=== PATIENT | male | born 1960 | race Caucasian/White ===

== ENCOUNTER 2018-11-28 23:42 | Observation (INO) ==
[2018-11-28] MEDS ORDERED: DUONEB 0.5 MG/3 MG NEB ONE (23:44)
[2018-11-28] MEDS ORDERED: NARCAN INJ IM ONE (23:50)
[2018-11-28] MEDS ORDERED: DUONEB 0.5 MG/3 MG ONE (23:51)
--- NOTE | 2018-11-28 23:51 | DR.DING ---
HPI - Time Seen Time seen: 23:49 - HPI Comment HPI Comment: He comes in via ems in altered state after being called because of same; significant other reports sob as well; there is question of drug use but no verifiable hx obtained from pt due ams. - Reviewed Nurses Notes Review: Yes - Source History Provided: EMS PMH - PMH Past Medical History: COPD, Hypertension Past Surgical History: Yes Surgical History: Ortho Surgery - Family History Family Medical History: Diabetes Mellitus, Hypertension - Social History Do you use any recreational Drugs:: Yes (thc) - infectious screening Isolation: Standard ROS - Review of Systems Unable to Obtain Due To: Altered mental status PE - General Limitations: Altered Mental Status General Appearance: Appears Intoxicated - Head Head Exam: Normal Inspection, Atraumatic - Chest Chest Inspection: Normal Inspection, Symmetric Chest Wall Rise - Respiratory Respiratory Exam: Bilateral Wheezing - Cardiovascular Cardiovascular Exam: Regular Rate, Normal Rhythm - Abdominal Exam Abdominal Exam: Normal Inspection, Normal Bowel Sounds, Soft - Extremities Extremities Exam: Normal Inspection, Full ROM - Back Back Exam: Normal Inspection - Neurologic Neurological Exam: Other (somnolent, awakens with strong verbal stimulation but responses aren't logical) - Skin Skin Exam: Warm, Dry, Other (facial hyperemia) - Vital signs Vitals: Temperature 98.2 F Pulse Rate [Apical] 72 Pulse Rate 73 Respiratory Rate 28 Blood Pressure [Right Arm] 112/66 Blood Pressure 108/66 O2 Sat by Pulse Oximetry 96 Course - Reevaluation 1st: Unchanged ROR - Labs Reviewed Laboratory Results Reviewed?: Yes Result Diagrams: 11/29/18 00:05 11/29/18 00:05 - Other Results Comments: mpression: Bibasilar atelectasis versus infiltrate. Grossly stable right upper lobe mass. - XRAY XRAY Interpreted by: Radiologist - Labs Reviewed Laboratory: WBC 12.0 X10^3/uL (3.6-10.0) H 11/29/18 00:05 RBC 4.98 X10^6/uL (4.7-6.0) 11/29/18 00:05 Hgb 15.5 g/dL (13.5-18.0) 11/29/18 00:05 Hct 45.4 % (42.0-54.0) 11/29/18 00:05 MCV 91.2 fL (80.0-100.0) 11/29/18 00:05 MCH 31.1 pg (27.0-34.0) 11/29/18 00:05 MCHC 34.1 g/dL (33.0-35.0) 11/29/18 00:05 RDW 14.6 % (11.6-16.5) 11/29/18 00:05 Plt Count 152 X10^3/uL (150.0-450.0) 11/29/18 00:05 MPV 8.6 fL (7.4-11.0) 11/29/18 00:05 Neut % (Auto) 79.4 % (42.0-75.0) H 11/29/18 00:05 Lymph % (Auto) 9.8 % (21.0-51.0) L 11/29/18 00:05 [place] % (Auto) 10.1 % (0.0-13.0) 11/29/18 00:05 Eos % (Auto) 0.3 % (0.9-2.9) L 11/29/18 00:05 Baso % (Auto) 0.4 % (0.2-1.0) 11/29/18 00:05 Neut # (Auto) 9.5 x10^3/uL (2.2-4.8) H 11/29/18 00:05 Lymph # (Auto) 1.2 X10^3/uL (1.3-2.9) L 11/29/18 00:05 [place] # (Auto) 1.2 x10^3/uL (0.3-0.8) H 11/29/18 00:05 Eos # (Auto) 0.0 x10^3/uL (0.0-0.2) 11/29/18 00:05 Baso # (Auto) 0.0 X10^3/uL (0.0-0.1) 11/29/18 00:05 Absolute Nucleated RBC 0.0 /100WBC 11/29/18 00:05 D-Dimer 105 ng/mL (0-400) 11/29/18 00:05 Sample Site Lbra 11/29/18 00:05 ABG pH 7.380 (7.35-7.45) 11/29/18 00:05 ABG pCO2 50.0 mmHg (35.0-45.0) H 11/29/18 00:05 ABG pO2 76.0 mmHg (80.0-100.0) L 11/29/18 00:05 ABG HCO3 29.6 mmol/L (22-26) H 11/29/18 00:05 ABG O2 Saturation 95.0 % (90-100) 11/29/18 00:05 ABG Base Excess 3.5 mmol/L (-2.0-2.0) H 11/29/18 00:05 Aiden Test Na 11/29/18 00:05 A-a Gradient 61.0 mmHg 11/29/18 00:05 FiO2 28.0 11/29/18 00:05 Blood Gas Comments Betsey abg well-mtf 11/29/18 00:05 Sodium 133 mmol/L (136-145) L 11/29/18 00:05 Corrected Sodium 133 mmol/L (136-145) L 11/29/18 00:05 Potassium 3.8 mmol/L (3.5-5.1) 11/29/18 00:05 Chloride 99 mmol/L (98-107) 11/29/18 00:05 Carbon Dioxide 26.5 mmol/L (21-32) 11/29/18 00:05 BUN 18 mg/dL (7-18) 11/29/18 00:05 Creatinine 1.29 mg/dL (0.70-1.30) 11/29/18 00:05 Est GFR (MDRD) Af Amer > 60 (>60) 11/29/18 00:05 Est GFR (MDRD) Non-Af > 60 (>60) 11/29/18 00:05 Glucose 120 mg/dL (65-99) H 11/29/18 00:05 Calcium 8.4 mg/dL (8.5-10.1) L 11/29/18 00:05 Corrected Calcium TNP 11/29/18 00:05 Total Bilirubin 0.50 mg/dL (0.2-1.0) 11/29/18 00:05 AST 21 Units/L (15-37) 11/29/18 00:05 ALT 15 Units/L (12-78) 11/29/18 00:05 Alkaline Phosphatase 34 Units/L (46-116) L 11/29/18 00:05 Creatine Kinase 236 Units/L (39-308) 11/29/18 00:05 CK-MB (CK-2) 6.1 ng/mL (0-4.0) H* 11/29/18 00:05 CK/CKMB % Calc 2.6 % (<4) 11/29/18 00:05 Troponin I 0.00 ng/mL (0-1.5) 11/29/18 00:05 Total Protein 6.7 g/dL (6.4-8.2) 11/29/18 00:05 Albumin 3.4 g/dL (3.4-5.0) 11/29/18 00:05 Globulin 3.3 g/dL (2.5-4.5) 11/29/18 00:05 Albumin/Globulin Ratio 1.0 Ratio (1.1-2.1) L 11/29/18 00:05 Specimen Type Catherized urine 11/29/18 00:56 Urine Color Yellow (YELLOW) 11/29/18 00:56 Urine Appearance Slightly hazy (CLEAR) 11/29/18 00:56 Urine pH 6.0 (5.0 - 8.0) 11/29/18 00:56 Ur Specific [place] 1.025 (1.000-1.030) 11/29/18 00:56 Urine Protein 2+ (NEGATIVE) 11/29/18 00:56 Urine Glucose (UA) Negative (NEGATIVE) 11/29/18 00:56 Urine Ketones 1+ (NEGATIVE) 11/29/18 00:56 Urine Occult Blood 1+ (NEGATIVE) 11/29/18 00:56 Urine Nitrite Negative (NEGATIVE) 11/29/18 00:56 Urine Bilirubin Negative (NEGATIVE) 11/29/18 00:56 Urine Urobilinogen 1+ (NORMAL) 11/29/18 00:56 Ur Leukocyte Esterase 1+ (NEGATIVE) 11/29/18 00:56 Urine RBC 3-5 /HPF (0-3) A 11/29/18 00:56 Urine WBC 3-5 /HPF (0-5) 11/29/18 00:56 Ur Squamous Epith Cells Few /HPF (NEGATIVE) 11/29/18 00:56 Amorphous Sediment 1+ /HPF (NEGATIVE) 11/29/18 00:56 Urine Bacteria Trace /HPF (NEGATIVE) 11/29/18 00:56 Urine Sperm Few /HPF (NEGATIVE) 11/29/18 00:56 Ur Culture Indicated? No/not indicated 11/29/18 00:56 Urine Opiates Screen Negative (NEG=<300) 11/29/18 00:56 Urine Methadone Screen Negative (NEG=<300) 11/29/18 00:56 Ur Barbiturates Screen Negative (NEG=<200) 11/29/18 00:56 Ur Phencyclidine Scrn Negative (NEG=<25) 11/29/18 00:56 Ur Amphetamines Screen Negative (NEG=<1000) 11/29/18 00:56 U Benzodiazepines Scrn Positive (NEG=<200) 11/29/18 00:56 Urine Cocaine Screen Positive (NEG=<300) 11/29/18 00:56 U Marijuana (THC) Screen Positive (NEG=<50) A 11/29/18 00:56 Opioid - Opioid Risk Tool Total: 0 Total Score Risk Category: Low Risk - Diagnosis Discharge Problem: Altered behavior, Hypoxia Cocaine intoxication Qualifiers: Complication of substance-induced condition: with delirium Qualified Code(s): F14.921 - Cocaine use, unspecified with intoxication delirium - Discharge Plan Disposition: 09 ADMITTED INPATIENT Condition: Stable
[2018-11-28] MEDS ORDERED: NARCAN INJ ONE (23:54)
[2018-11-29 00:09] LABS: ABG BASE EXCESS 3.5 mmol/L (-2.0-2.0); ABG HCO3 29.6 mmol/L (22-26)
[2018-11-29 00:22] LABS: BASOPHILS % (AUTO) 0.4 % (0.2-1.0); EOSINOPHILS % (AUTO) 0.3 % (0.9-2.9); HEMATOCRIT 45.4 % (42.0-54.0); HEMOGLOBIN 15.5 g/dL (13.5-18.0); LYMPHOCYTES # (AUTO) 1.2 X10^3/uL (1.3-2.9); LYMPHOCYTES % (AUTO) 9.8 % (21.0-51.0); MEAN CORPUSCULAR HEMOGLOBIN 31.1 pg (27.0-34.0); MEAN CORPUSCULAR HGB CONC 34.1 g/dL (33.0-35.0); MEAN CORPUSCULAR VOLUME 91.2 fL (80.0-100.0); MEAN PLATELET VOLUME 8.6 fL (7.4-11.0); MONOCYTES # (AUTO) 1.2 x10^3/uL (0.3-0.8); MONOCYTES % (AUTO) 10.1 % (0.0-13.0); NEUTROPHILS # (AUTO) 9.5 x10^3/uL (2.2-4.8); NEUTROPHILS % (AUTO) 79.4 % (42.0-75.0); PLATELET COUNT 152 X10^3/uL (150.0-450.0); RED BLOOD COUNT 4.98 X10^6/uL (4.7-6.0); RED CELL DISTRIBUTION WIDTH 14.6 % (11.6-16.5)
[2018-11-29] MEDS ORDERED: NS 1000 ML 1,000 ML ONE (00:41)
[2018-11-29 00:58] LABS: BLOOD UREA NITROGEN 18 mg/dL (7-18); CALCIUM 8.4 mg/dL (8.5-10.1); CARBON DIOXIDE 26.5 mmol/L (21-32); CHLORIDE 99 mmol/L (98-107); COR NA(FOR HYPERGLY) 133 mmol/L (136-145); CREATININE 1.29 mg/dL (0.70-1.30); SODIUM 133 mmol/L (136-145); eGFR NON BLACK RACES > 60 (>60)
[2018-11-29] MEDS ORDERED: NS 1000 ML 1,000 ML IV SCH ×2 (01:00→03:00)
[2018-11-29 01:05] LABS: ALANINE AMINOTRANSFERASE 15 Units/L (12-78); ALBUMIN 3.4 g/dL (3.4-5.0); ALKALINE PHOSPHATASE 34 Units/L (46-116); ASPARTATE AMINO TRANSFERASE 21 Units/L (15-37); CREATINE KINASE 236 Units/L (39-308); TOTAL PROTEIN 6.7 g/dL (6.4-8.2)
[2018-11-29 01:06] LABS: CKMB % 2.6 % (<4); CREATINE KINASE MB 6.1 ng/mL (0-4.0)
[2018-11-29 01:12] LABS: BILIRUBIN,URINE NEGATIVE (NEGATIVE); BLOOD/HEMOGLOBIN,URINE 1+ (NEGATIVE); GLUCOSE, URINE NEGATIVE (NEGATIVE); KETONES,URINE 1+ (NEGATIVE); LEUKOCYTE ESTERASE ,URINE 1+ (NEGATIVE); NITRITES,URINE NEGATIVE (NEGATIVE); PROTEIN,URINE 2+ (NEGATIVE); UROBILINOGEN,URINE 1+ (NORMAL)
[2018-11-29 01:21] LABS: AMORPHOUS SEDIMENT,UR 1+ /HPF (NEGATIVE); APPEARANCE,URINE SLIGHTLY HAZY (CLEAR); BACTERIA,URINE TRACE /HPF (NEGATIVE); COLOR,URINE YELLOW (YELLOW); SPERM,URINE FEW /HPF (NEGATIVE); SQUAMOUS EPITHELIAL CELL,UR FEW /HPF (NEGATIVE)
--- NOTE | 2018-11-29 01:43 | RAD ---
Chest, 1 view Indication: Shortness of breath, possible overdose Comparison: 10/01/2018 Findings: Right upper lobe mass is not significantly changed in size. Adjacent metallic clips are new from prior. Minimal bibasilar reticular opacities. The cardiac silhouette is unremarkable. No significant pleural effusion or pneumothorax. Impression: Bibasilar atelectasis versus infiltrate. Grossly stable right upper lobe mass. Reported By:
[2018-11-29] MEDS ORDERED: ATIVAN INJ 2 MG VIAL IVP PRN (02:23)
[2018-11-29] MEDS ORDERED: TYLENOL 500 MG TAB EXTRA STRENGTH PO PRN (02:23)
[2018-11-29] MEDS ORDERED: ZOFRAN INJ 4 MG VIAL IVP PRN (02:23)
[2018-11-29] MEDS ORDERED: PROVENTIL NEB TX 0.083% 2.5MG/ 3ML NEB PRN (02:34)
[2018-11-29 08:52] LABS: CKMB % 3.2 % (<4); CREATINE KINASE 173 Units/L (39-308); TROPONIN I < 0.02 ng/mL (0-1.5)
[2018-11-29 08:53] LABS: CREATINE KINASE MB 5.5 ng/mL (0-4.0)
[2018-11-29 08:55] VITALS: BP 96/72
--- NOTE | 2018-11-29 18:28 | DR.H&P ---
H&P - History & Physical for Day of: H&P Date: 11/29/18 - Chief Complaint Chief Complaint: AMS - History of Present Illness History of Present Illness: 58 WM ER ADMISSION WITH AMS, PER EMS. REPORTS FROM PT'S SIGNIFICANT OTHER PT HAD INGESTED COCAINE, XANAX AND SOMA. PT WAS NOTED TO BY ALTERED ON ARRIVAL TO ER. PT HAS PMH OF OA, NEWLY DIAGNOSED WITH LUNG CANCER, AND HX OF SUBSTANCE ABUSE. PT ADMITTED TO ICU FOR EVALUATION AND TREATMENT OF A CUTE ILLNESS. - Past Medical History Past Medical History: COPD, Hypertension Additional Medical History: LUNG MASS - Past Surgical History Surgical History: Ortho Surgery - Family History Family Medical History: Diabetes Mellitus, Hypertension - Social History Does patient currently use any type of tobacco product: Yes Have you used tobacco products in the last 12 months: Yes Type of Tobacco Use: Cigarettes Does any household member use tobacco: Yes Drug Use: Cocaine, Marijuana - Medications Home Medications: No Known Drug Allergies Allergy (Verified 11/29/18 01:03) - Review of Systems Constitutional: Weakness Eyes: No Symptoms Reported ENT: No Symptoms Reported Respiratory: Cough, Shortness of Breath, SOB with Excertion, Sputum, Wheezing Gastrointestinal: No Symptoms Reported Genitourinary: No Symptoms Reported Musculoskeletal: Back Pain Skin: No Symptoms Reported Neurological: Weakness - Physical Exam Vital Signs: Temperature 98.9 F Pulse Rate [Apical] 64 Pulse Rate 68 Respiratory Rate 22 Blood Pressure [Right Arm] 101/61 Blood Pressure 96/72 O2 Sat by Pulse Oximetry 95 Oriented: Person Eyes: Normal Ear: Normal Nose: Normal Throat: Normal Respiratory: Wheezes Throughout, RLL Diminished, LLL Diminished : Normal Auscultation: Bowel Sounds: Normal Palpation: Normal Tenderness: Normal Skin: Decreased Turgur Musculoskeletal: Back:Lumbar Psychiatric: Anxiety Affect: Anxious Speech Pattern: Appropriate - Assessment/Plan (1) Altered behavior Status: Acute Plan: ADMIT ICU, CONTINOUS CARDIAC MONITORING. SERIAL EKGS, CE. IV HYDRATION, BP CONTROL. SUPPLEMENTAL O2, RESP THERAPY. VERIFY HOME MEDICATION, CANO WITH STRICT I& OS. CXR ON ADMISSION (2) Cocaine intoxication Qualifiers: Complication of substance-induced condition: with delirium Qualified Code(s): F14.921 - Cocaine use, unspecified with intoxication delirium Status: Acute (3) Lung mass Status: Acute - Allergies Allergies/Adverse Reactions: Allergies Allergy/AdvReac Type Severity Reaction Status Date / Time No Known Drug Allergies Allergy Verified 11/29/18 01:03
== END 2018-11-29 08:35 | disposition left against medical advice (07) ==
LOC: ICU 23:43 → ER 23:43 → ICU 11-29 02:56
PROVIDERS: ADMIT Internal Medicine; ATTEND Internal Medicine
DX: R40.4 Transient alteration of awareness; F19.90 Other psychoactive substance use, unspecified, uncomplicated; J44.9 Chronic obstructive pulmonary disease, unspecified; F12.90 Cannabis use, unspecified, uncomplicated; F14.921 Cocaine use, unspecified with intoxication delirium; C34.90 Malignant neoplasm of unspecified part of unspecified bronchus or lung; R06.02 Shortness of breath; I10 Essential (primary) hypertension
CPT/HCPCS: 36415; 36600; 51702; 71010; 71045; 80053; 80307; 81001; 82550; 82553; 82803; 84484; 85025; 85378; 93005; 94640; 96365; 96367; 96372; 99284; G0378; G0434; J2310; J7030; J7620

== ENCOUNTER 2023-01-22 13:29 | Inpatient (IN) ==
[2023-01-22] MEDS ORDERED: NARCAN INJ IVP ONE (13:36)
[2023-01-22] MEDS ORDERED: NS 1,000 ML IV 1,000 ML IV ONE ×4 (13:52→16:48)
[2023-01-22] MEDS ORDERED: NS 1,000 ML IV 1,000 ML ONE ×5 (13:54→18:02)
[2023-01-22] MEDS ORDERED: NARCAN INJ ONE (13:57)
[2023-01-22] MEDS ORDERED: ZOFRAN INJ 4 MG VIAL ONE (13:58)
--- NOTE | 2023-01-22 14:07 | DR.SOBA ---
HPI Time Seen Time Seen by Provider: 01/22/23 14:05 Primary Care Physician Primary Care Physician: DANIEL CEJA Complaints Chief Complaint Doctors Comments: This patient fell at home and he has a CANDACE drain in his right chest he thinks he may have dislodged one of the arm that drain. He also was hypotensive at the scene and he does have a history of incre ased opiate use. Chief Complaint:: EMS states that patient fell & pulled CANDACE drain loose from a fall he had previously x1 week ago. Source History Provided: EMS Mode of Arrival Mode of Arrival: EMS Timing Onset of Chief Complaint: 01/22/23 PMH PMH Past Medical History: Yes Past Medical History: Anxiety, Arthritis, COPD, Depression, Dyslipidemia, Hypertension and Hypothyroidism Past Surgical History: Yes Surgical History: Ortho Surgery Family History History of Family Medical Conditions: Yes Family Medical History: Diabetes Mellitus and Coronary Artery Disease Social History Does patient currently use any type of tobacco product: Yes Have you used tobacco products in the last 12 months: Yes Type of Tobacco Use: Cigarettes Alcohol Use: None Do you use any recreational Drugs:: No Lives With: Alone Lives Where: Home Infectious screening In the last 2 months have you had wt loss of >10#?: NO Have you had fever, night sweats or hemotysis?: No Have you traveled outside the country in the last 6 months?: No Isolation: Standard ROS Review of Systems Constitutional: Weakness and Other (hypotensive) Eyes: No Symptoms Reported ENTM: No Symptoms Reported Respiratoy: No Symptoms Reported Cardiovascular: No Symptoms Reported Gastrointestinal/Abdominal: No Symptoms Reported Genitourinary: No Symptoms Reported Neurological: No Symptoms Reported Musculoskeletal: Right and Other (flank pain) Integumentary: Other (candace drain in r axillary chest) Hematologic/Lymphatic: No Symptoms Reported Endocrine: No Symptoms Reported Psychiatric: Other (obtunded) PE Vital Signs Vitals: Vital Signs Temperature 97.2 F Temperature 94.4 F Temperature 93.9 F Temperature 97.7 F Pulse Rate 92 Pulse Rate 91 Pulse Rate 86 Pulse Rate 91 Pulse Rate 86 Pulse Rate 85 Pulse Rate 86 Pulse Rate 82 Pulse Rate 84 Pulse Rate 80 Pulse Rate 80 Pulse Rate 80 Pulse Rate 81 Pulse Rate 75 Pulse Rate 78 Pulse Rate 77 Pulse Rate 80 Pulse Rate 82 Pulse Rate 84 Pulse Rate 86 Pulse Rate 96 Pulse Rate 98 Pulse Rate 99 Pulse Rate 100 Pulse Rate 97 Pulse Rate 97 Pulse Rate 99 Pulse Rate 97 Pulse Rate 97 Pulse Rate 98 Pulse Rate 98 Pulse Rate 100 Pulse Rate 99 Pulse Rate 96 Pulse Rate 92 Pulse Rate 83 Pulse Rate 84 Pulse Rate 76 Pulse Rate 70 Pulse Rate 64 Pulse Rate 58 Pulse Rate 57 Pulse Rate 56 Pulse Rate 54 Pulse Rate 53 Pulse Rate 52 Pulse Rate 57 Pulse Rate 52 Pulse Rate 50 Pulse Rate 51 Respiratory Rate 22 Respiratory Rate 17 Respiratory Rate 17 Respiratory Rate 29 Respiratory Rate 28 Respiratory Rate 23 Respiratory Rate 21 Respiratory Rate 19 Respiratory Rate 26 Respiratory Rate 18 Respiratory Rate 22 Respiratory Rate 24 Respiratory Rate 28 Respiratory Rate 21 Respiratory Rate 18 Respiratory Rate 29 Respiratory Rate 23 Respiratory Rate 20 Respiratory Rate 19 Respiratory Rate 16 Respiratory Rate 19 Respiratory Rate 17 Respiratory Rate 94 Respiratory Rate 25 Respiratory Rate 28 Respiratory Rate 27 Respiratory Rate 13 Respiratory Rate 17 Respiratory Rate 16 Respiratory Rate 16 Respiratory Rate 18 Respiratory Rate 15 Respiratory Rate 24 Respiratory Rate 16 Respiratory Rate 13 Respiratory Rate 0 Respiratory Rate 17 Respiratory Rate 25 Respiratory Rate 19 Respiratory Rate 22 Respiratory Rate 12 Respiratory Rate 20 Respiratory Rate 22 Respiratory Rate 21 Respiratory Rate 16 Blood Pressure 139/93 Blood Pressure 143/68 Blood Pressure 140/69 Blood Pressure 138/70 Blood Pressure 130/65 Blood Pressure 138/67 Blood Pressure 132/69 Blood Pressure 144/77 Blood Pressure 123/55 Blood Pressure 123/60 Blood Pressure 157/70 Blood Pressure 108/55 Blood Pressure 102/58 Blood Pressure 93/55 Blood Pressure 78/42 Blood Pressure 68/41 Blood Pressure 68/41 Blood Pressure 100/63 Blood Pressure 100/63 Blood Pressure 84/48 Blood Pressure 89/48 Blood Pressure 93/52 Blood Pressure 92/46 Blood Pressure 88/54 Blood Pressure 85/53 Blood Pressure 67/43 Blood Pressure 92/53 Blood Pressure 99/51 Blood Pressure 76/43 Blood Pressure 102/67 Blood Pressure 102/67 Blood Pressure 78/45 Blood Pressure 86/59 Blood Pressure 91/62 Blood Pressure 76/52 Blood Pressure 75/43 O2 Sat by Pulse Oximetry 95 O2 Sat by Pulse Oximetry 94 O2 Sat by Pulse Oximetry 93 O2 Sat by Pulse Oximetry 97 O2 Sat by Pulse Oximetry 97 O2 Sat by Pulse Oximetry 97 O2 Sat by Pulse Oximetry 97 O2 Sat by Pulse Oximetry 97 O2 Sat by Pulse Oximetry 97 O2 Sat by Pulse Oximetry 96 O2 Sat by Pulse Oximetry 98 O2 Sat by Pulse Oximetry 98 O2 Sat by Pulse Oximetry 98 O2 Sat by Pulse Oximetry 98 O2 Sat by Pulse Oximetry 98 O2 Sat by Pulse Oximetry 97 O2 Sat by Pulse Oximetry 98 O2 Sat by Pulse Oximetry 97 O2 Sat by Pulse Oximetry 97 O2 Sat by Pulse Oximetry 98 O2 Sat by Pulse Oximetry 97 O2 Sat by Pulse Oximetry 96 O2 Sat by Pulse Oximetry 98 O2 Sat by Pulse Oximetry 98 O2 Sat by Pulse Oximetry 97 O2 Sat by Pulse Oximetry 98 O2 Sat by Pulse Oximetry 98 O2 Sat by Pulse Oximetry 98 O2 Sat by Pulse Oximetry 99 O2 Sat by Pulse Oximetry 97 O2 Sat by Pulse Oximetry 98 O2 Sat by Pulse Oximetry 98 O2 Sat by Pulse Oximetry 97 O2 Sat by Pulse Oximetry 98 O2 Sat by Pulse Oximetry 99 O2 Sat by Pulse Oximetry 98 O2 Sat by Pulse Oximetry 99 O2 Sat by Pulse Oximetry 97 O2 Sat by Pulse Oximetry 98 O2 Sat by Pulse Oximetry 95 O2 Sat by Pulse Oximetry 100 O2 Sat by Pulse Oximetry 100 O2 Sat by Pulse Oximetry 97 O2 Sat by Pulse Oximetry 98 O2 Sat by Pulse Oximetry 96 O2 Sat by Pulse Oximetry 98 O2 Sat by Pulse Oximetry 96 O2 Sat by Pulse Oximetry 85 General Limitations: Physical Limitation (weak and unable to ambulate) General Appearance: Lethargic and Obtunded Head Head Exam: Normal Inspection, Atraumatic and Normocephalic Eyes Eye exam: Normal Appearance ENT ENT Exam: Normal Exam and Normal Oropharynx Neck Neck Exam: Normal Inspection, Full ROM and Trachea Midline Chest Chest Inspection: Other (sutures right axillary area and a candace drain) Respiratory Respiratory Exam: Normal Lung Sounds Bilat Respiratory Exam: Bilateral: Clear to Auscultation Cardiovascular Cardiovascular Exam: Bradycardia Abdominal Exam Abdominal Exam: Normal Inspection and Normal Bowel Sounds Extremities Extremities Exam: Normal Inspection Back Back Exam: Normal Inspection Neurologic Neurological Exam: Other (obtunded) Psychiatric Psychiatric Exam: Flat Affect Skin Skin Exam: Other (Duration on right flank with CANDACE drain in place.) MDM Differential Diagnosis Differential Diagnosis: Mycardial Infarction and Other (hypotension,drug overdose) Differential Diagnosis Comment:: rhabdomyolysis COURSE Treatment Treatment: NoThis patient remained hypotensive for while doing out evaluation treatment. He was given 4 L saline bolus and then continue as saline drip at 200 cc an hour. The patient also was initially given a dopamine drip that did not affect his blood pressure for movement of to around 70 systolic. We finally had to put him on a Levophed drip and his blood pressure did increase to about 150/90 and we start weaning down the Levophed. The patient also gout Narcan 2 mg IV and Romazicon 0.2 mg IV because he had benzodiazepine and opiates on his UDS. Patient did appear to become more alert about 25 minutes after administration of those 2 drugs. Patient had a CK of 1985 so we will begin treatment for rhabdomyolysis. Patient's lactic acid level was only 0.[address] scan of his brain because he was obtunded there was no intracranial abnormality. This patient BUN was 63 and creatinine was 2.84 and his GFR was 29 so he did have some renal insufficiency also. We did contact Dr. Steiner at 1925 and she excepted this patient to admission for further treatment and therapy. ROR Labs Reviewed Laboratory Results Reviewed?: Yes 01/22/23 15:00 01/22/23 15:00 Laboratory: WBC 5.6 X10^3/uL (3.6-10.0) 01/22/23 15:00 RBC 3.30 X10^6/uL (4.7-6.0) L 01/22/23 15:00 Hgb 9.7 g/dL (13.5-18.0) L 01/22/23 15:00 Hct 29.0 % (42.0-54.0) L 01/22/23 15:00 MCV 87.8 fL (80.0-100.0) 01/22/23 15:00 MCH 29.5 pg (27.0-34.0) 01/22/23 15:00 MCHC 33.6 g/dL (33.0-35.0) 01/22/23 15:00 RDW 14.5 % (11.6-16.5) 01/22/23 15:00 Plt Count 191 X10^3/uL (150.0-450.0) 01/22/23 15:00 MPV 7.2 fL (7.4-11.0) L 01/22/23 15:00 Neut % (Auto) 73.4 % (42.0-75.0) 01/22/23 15:00 Lymph % (Auto) 14.8 % (21.0-51.0) L 01/22/23 15:00 [place] % (Auto) 9.8 % (0.0-13.0) 01/22/23 15:00 Eos % (Auto) 1.7 % (0.9-2.9) 01/22/23 15:00 Baso % (Auto) 0.3 % (0.2-1.0) 01/22/23 15:00 Neut # (Auto) 4.1 x10^3/uL (2.2-4.8) 01/22/23 15:00 Lymph # (Auto) 0.8 X10^3/uL (1.3-2.9) L 01/22/23 15:00 [place] # (Auto) 0.6 x10^3/uL (0.3-0.8) 01/22/23 15:00 Eos # (Auto) 0.1 x10^3/uL (0.0-0.2) 01/22/23 15:00 Baso # (Auto) 0.0 X10^3/uL (0.0-0.1) 01/22/23 15:00 Absolute Nucleated RBC 0.1 /100WBC 01/22/23 15:00 Sodium 134 mmol/L (136-145) L 01/22/23 15:00 Corrected Sodium TNP 01/22/23 15:00 Potassium 4.0 mmol/L (3.5-5.1) 01/22/23 15:00 Chloride 99 mmol/L (98-107) 01/22/23 15:00 Carbon Dioxide 28.0 mmol/L (21-32) 01/22/23 15:00 BUN 63 mg/dL (7-18) H 01/22/23 15:00 Creatinine 2.84 mg/dL (0.70-1.30) H 01/22/23 15:00 Est GFR (MDRD) Af Amer 29 (>60) L 01/22/23 15:00 Est GFR (MDRD) Non-Af 24 (>60) L 01/22/23 15:00 Glucose 106 mg/dL (65-99) H 01/22/23 15:00 Lactic Acid 0.9 mmol/L (0.4-2.0) 01/22/23 15:53 Calcium 7.9 mg/dL (8.5-10.1) L 01/22/23 15:00 Corrected Calcium 9.1 mg/dL (8.5-10.1) 01/22/23 15:00 Total Bilirubin 0.40 mg/dL (0.2-1.0) 01/22/23 15:00 AST 86 Units/L (15-37) H 01/22/23 15:00 ALT 53 Units/L (12-78) 01/22/23 15:00 Alkaline Phosphatase 72 Units/L (46-116) 01/22/23 15:00 Creatine Kinase 1986 Units/L (39-308) H 01/22/23 15:00 Troponin I High Sens 16.1 ng/L (4.0-60.0) 01/22/23 15:00 Total Protein 6.0 g/dL (6.4-8.2) L 01/22/23 15:00 Albumin 2.5 g/dL (3.4-5.0) L 01/22/23 15:00 Globulin 3.5 g/dL (2.5-4.5) 01/22/23 15:00 Albumin/Globulin Ratio 0.7 Ratio (1.1-2.1) L 01/22/23 15:00 Specimen Type Clean catch urine 01/22/23 14:40 Urine Color Yellow (YELLOW) 01/22/23 14:40 Urine Appearance Clear (CLEAR) 01/22/23 14:40 Urine pH 6.0 (5.0 - 8.0) 01/22/23 14:40 Ur Specific [place] 1.025 (1.000-1.030) 01/22/23 14:40 Urine Protein 2+ (NEGATIVE) 01/22/23 14:40 Urine Glucose (UA) Negative (NEGATIVE) 01/22/23 14:40 Urine Ketones Negative (NEGATIVE) 01/22/23 14:40 Urine Blood 1+ (NEGATIVE) 01/22/23 14:40 Urine Nitrite Negative (NEGATIVE) 01/22/23 14:40 Urine Bilirubin Negative (NEGATIVE) 01/22/23 14:40 Urine Urobilinogen Normal (NORMAL) 01/22/23 14:40 Ur Leukocyte Esterase Negative (NEGATIVE) 01/22/23 14:40 Urine RBC 0-2 /HPF (0-3) 01/22/23 14:40 Urine WBC 5-10 /HPF (0-5) A 01/22/23 14:40 Ur Squamous Epith Cells Rare /HPF (NEGATIVE) 01/22/23 14:40 Amorphous Sediment Trace /HPF (NEGATIVE) 01/22/23 14:40 Urine Bacteria Trace /HPF (NEGATIVE) 01/22/23 14:40 Hyaline Casts Few /LPF (NEGATIVE) 01/22/23 14:40 Urine Mucus Rare /HPF (NEGATIVE) 01/22/23 14:40 Ur Culture Indicated? No/not indicated 01/22/23 14:40 Urine Opiates Screen Positive (NEG=<300) 01/22/23 14:40 Urine Methadone Screen Negative (NEG=<300) 01/22/23 14:40 Ur Barbiturates Screen Negative (NEG=<200) 01/22/23 14:40 Ur Phencyclidine Scrn Negative (NEG=<25) 01/22/23 14:40 Ur Amphetamines Screen Negative (NEG=<1000) 01/22/23 14:40 U Benzodiazepines Scrn Positive (NEG=<200) 01/22/23 14:40 Urine Cocaine Screen Negative (NEG=<300) 01/22/23 14:40 U Marijuana (THC) Screen Negative (NEG=<50) 01/22/23 14:40 Opioid Opioid Risk Tool Age ([place]ario box if 16-45): No History of Preadolescent Sexual Abuse: No Total: 0 Total Score Risk Category: Low Risk Copyright: Pradip MARCUM predicting aberrant behaviors Discharge Plan Diagnosis Discharge Problem: Acute renal failure due to rhabdomyolysis, Accidental drug overdose, Hypotension Discharge Plan Patient Disposition: 09 ADMITTED INPATIENT Condition: Stable Prescriptions: No Action fluoxetine 40 mg capsule 40 mg PO QDAY clindamycin HCl 300 mg capsule 300 mg PO TID Rx Instructions: x 10 days started on 01/20/23 alprazolam 1 mg tablet 1 mg PO TID PRN tizanidine 4 mg tablet 8 mg PO BID terazosin 1 mg capsule 1 mg PO QDAY ciprofloxacin HCl 500 mg tablet 500 mg PO BID Rx Instructions: x 10 days - started on 01/16/23 levothyroxine 100 mcg tablet 100 mcg PO QDAY clonidine HCl 0.2 mg tablet 0.2 mg PO BID potassium chloride 20 mEq tablet,ER particles/crystals 20 meq PO BID amlodipine 10 mg tablet 10 mg PO QDAY hydrocodone-acetaminophen 7.5-325 mg tablet 1 tab PO Q6H PRN simvastatin 20 mg tablet 20 mg PO QPM montelukast 10 mg tablet 10 mg PO QDAY hydrochlorothiazide 25 mg tablet 25 mg PO QDAY hydrochlorothiazide 25 mg tablet 25 mg PO QDAY furosemide 20 mg tablet 20 mg PO QDAY furosemide 20 mg tablet 20 mg PO QDAY losartan 100 mg tablet 100 mg PO QDAY amoxicillin-pot clavulanate 875-125 mg tablet 1 tab PO BID Rx Instructions: x 7 days - started on 01/20/23 fenofibrate 160 mg tablet 160 mg PO QDAY quetiapine 400 mg tablet 400 mg PO QPM budesonide-formoterol [Symbicort] 160-4.5 mcg/actuation HFA aerosol inhaler 1 inh inhalation BID Health Concerns: Post Hospitalization: new medications and changes needed to prevent readmission or further decline. Pt educated and given instructions on all concerns. Plan of Treatment: Continue with present treatment and follow up plan. Pt is to keep follow up appointment as instructed and take medications as ordered. Orders to Discharge Patient Discharge Orders: Transfer (Routine); Ordered 01/22/23 Ordered By: Sulaiman Sanders Follow ups/Referrals Follow ups/Referrals: DONAVON CEJA [Primary Care Provider] - 3 days Instructions Stand Alone Forms: Post Hospital Follow Up Care
[2023-01-22] MEDS ORDERED: ZOFRAN INJ 4 MG VIAL IVP ONE (14:08)
--- NOTE | 2023-01-22 14:08 | EKG ---
Test Reason : hypotension Blood Pressure : */* mmHG Vent. Rate : 52 BPM Atrial Rate : 52 BPM P-R Int : 184 ms QRS Dur : 98 ms QT Int : 474 ms P-R-T Axes : 83 73 73 degrees QTc Int : 440 ms Sinus bradycardia Otherwise normal ECG When compared with ECG of 08-APR-2022 00:59, No significant change was found Confirmed by Ezekiel Bauer ([id number]) on 01/23/2023 1:31:52 PM Referred By: Confirmed By: Ezekiel Bauer
[2023-01-22] MEDS ORDERED: DOPAMINE IV PREMIX 400 MG/250 ML 400 MG/250 ML BAG IV ONE ×2 (14:45→14:49)
[2023-01-22 14:52] LABS: ALBUMIN 2.5 g/dL (3.4-5.0)
[2023-01-22 15:11] LABS: BASOPHILS % (AUTO) 0.3 % (0.2-1.0); EOSINOPHILS # (AUTO) 0.1 x10^3/uL (0.0-0.2); EOSINOPHILS % (AUTO) 1.7 % (0.9-2.9); HEMOGLOBIN 9.7 g/dL (13.5-18.0); LYMPHOCYTES # (AUTO) 0.8 X10^3/uL (1.3-2.9); LYMPHOCYTES % (AUTO) 14.8 % (21.0-51.0); MEAN CORPUSCULAR HEMOGLOBIN 29.5 pg (27.0-34.0); MEAN CORPUSCULAR HGB CONC 33.6 g/dL (33.0-35.0); MEAN CORPUSCULAR VOLUME 87.8 fL (80.0-100.0); MEAN PLATELET VOLUME 7.2 fL (7.4-11.0); MONOCYTES # (AUTO) 0.6 x10^3/uL (0.3-0.8); MONOCYTES % (AUTO) 9.8 % (0.0-13.0); NEUTROPHILS # (AUTO) 4.1 x10^3/uL (2.2-4.8); NEUTROPHILS % (AUTO) 73.4 % (42.0-75.0); PLATELET COUNT 191 X10^3/uL (150.0-450.0); RED CELL DISTRIBUTION WIDTH 14.5 % (11.6-16.5); WHITE BLOOD COUNT 5.6 X10^3/uL (3.6-10.0)
[2023-01-22 15:12] LABS: BILIRUBIN,URINE NEGATIVE (NEGATIVE); BLOOD/HEMOGLOBIN,URINE 1+ (NEGATIVE); GLUCOSE, URINE NEGATIVE (NEGATIVE); KETONES,URINE NEGATIVE (NEGATIVE); LEUKOCYTE ESTERASE ,URINE NEGATIVE (NEGATIVE); NITRITES,URINE NEGATIVE (NEGATIVE); PROTEIN,URINE 2+ (NEGATIVE); UROBILINOGEN,URINE NORMAL (NORMAL)
[2023-01-22 15:20] LABS: APPEARANCE,URINE CLEAR (CLEAR); BACTERIA,URINE TRACE /HPF (NEGATIVE); COLOR,URINE YELLOW (YELLOW); RBC,URINE 0-2 /HPF (0-3); SQUAMOUS EPITHELIAL CELL,UR RARE /HPF (NEGATIVE)
[2023-01-22 15:21] LABS: HYALINE CASTS, URINE FEW /LPF (NEGATIVE)
[2023-01-22 15:34] LABS: ALANINE AMINOTRANSFERASE 53 Units/L (12-78); ALKALINE PHOSPHATASE 72 Units/L (46-116); ASPARTATE AMINO TRANSFERASE 86 Units/L (15-37); BLOOD UREA NITROGEN 63 mg/dL (7-18); CALCIUM 7.9 mg/dL (8.5-10.1); CHLORIDE 99 mmol/L (98-107); COR CA(FOR HYPOALB) 9.1 mg/dL (8.5-10.1); CREATININE 2.84 mg/dL (0.70-1.30); GLUCOSE 106 mg/dL (65-99); SODIUM 134 mmol/L (136-145); eGFR NON BLACK RACES 24 (>60)
[2023-01-22] MEDS ORDERED: ROMAZICON INJ 1 MG ONE (16:19)
[2023-01-22] MEDS ORDERED: ROMAZICON INJ 1 MG IVP ONE (16:19)
--- NOTE | 2023-01-22 16:59 | CT ---
EXAM:BRAIN W/O CONHISTORY:AMS; DERRELL ONOFRECOMPARISON:09/30/2020TECHNIQUE:Nonenh anced spiral CT imaging was performed through the head and axial, coronal, and sagittal CT images were generated.FINDINGS:The ventricles and sulci are within normal limits. There is hypodensity in the periventricular white matter. The brain parenchyma otherwise has normal density. There is no sulcal effacement or focal loss of the eddy-white junction to suggest acute infarct. There is no intracranial hemorrhage. There is no mass effect or midline shift. The calvarium is intact. Mastoid air cells and middle ear cavities are clear. The paranasal sinuses are clear.IMPRESSION:No acute abnormality.THIS IS AN ELECTRONICALLY VERIFIED FINAL [id number]/22/2023 4:55 PM - Electronically signed by Aleks Campoverde MD
[2023-01-22] MEDS ORDERED: LEVOPHED INJ (VIAL) 8 MG in D5W 250 ML IV 250 ML IV PRN (17:15)
[2023-01-22] MEDS ORDERED: LEVOPHED INJ (VIAL) ONE (17:18)
[2023-01-22] MEDS ORDERED: D5W 250 ML IV 250 ML IV ONE (17:19)
[2023-01-22] MEDS ORDERED: NS 1,000 ML IV 1,000 ML IV SCH (19:00)
[2023-01-22] MEDS: NS 1,000 ML IV 1,000 ML IV SCH (20:00)
[2023-01-22] MEDS: ZOCOR TAB 20 MG PO SCH (22:00)
[2023-01-23] MEDS: NS 1,000 ML IV 1,000 ML IV SCH ×6 (04:33→20:47)
[2023-01-23 04:55] LABS: BASOPHILS % (AUTO) 0.2 % (0.2-1.0); EOSINOPHILS % (AUTO) 0.7 % (0.9-2.9); HEMATOCRIT 27.2 % (42.0-54.0); HEMOGLOBIN 9.2 g/dL (13.5-18.0); LYMPHOCYTES # (AUTO) 0.6 X10^3/uL (1.3-2.9); LYMPHOCYTES % (AUTO) 8.6 % (21.0-51.0); MEAN CORPUSCULAR HEMOGLOBIN 29.4 pg (27.0-34.0); MEAN CORPUSCULAR HGB CONC 33.9 g/dL (33.0-35.0); MEAN CORPUSCULAR VOLUME 86.7 fL (80.0-100.0); MEAN PLATELET VOLUME 7.3 fL (7.4-11.0); MONOCYTES # (AUTO) 0.6 x10^3/uL (0.3-0.8); MONOCYTES % (AUTO) 8.6 % (0.0-13.0); NEUTROPHILS # (AUTO) 5.4 x10^3/uL (2.2-4.8); NEUTROPHILS % (AUTO) 81.9 % (42.0-75.0); PLATELET COUNT 199 X10^3/uL (150.0-450.0); RED BLOOD COUNT 3.14 X10^6/uL (4.7-6.0); WHITE BLOOD COUNT 6.5 X10^3/uL (3.6-10.0)
[2023-01-23 05:18] LABS: ALANINE AMINOTRANSFERASE 50 Units/L (12-78); ALBUMIN 2.3 g/dL (3.4-5.0); ALKALINE PHOSPHATASE 67 Units/L (46-116); ASPARTATE AMINO TRANSFERASE 81 Units/L (15-37); BLOOD UREA NITROGEN 37 mg/dL (7-18); CALCIUM 7.6 mg/dL (8.5-10.1); CARBON DIOXIDE 25.4 mmol/L (21-32); CHLORIDE 105 mmol/L (98-107); CREATININE 1.49 mg/dL (0.70-1.30); GLUCOSE 109 mg/dL (65-99); POTASSIUM 3.7 mmol/L (3.5-5.1); SODIUM 137 mmol/L (136-145); TOTAL PROTEIN 5.7 g/dL (6.4-8.2); eGFR NON BLACK RACES 51 (>60)
[2023-01-23 05:21] LABS: CREATINE KINASE 1582 Units/L (39-308)
[2023-01-23] MEDS ORDERED: CONSULT PHARMACY - POTASSIUM & MAGNESIUM XX SCH (06:00)
[2023-01-23] MEDS ORDERED: CATAPRES TAB 0.1 MG PO ONE (06:10)
[2023-01-23] MEDS ORDERED: CATAPRES TAB 0.1 MG ONE (06:16)
[2023-01-23] MEDS: MAG-OX TAB PO SCH ×2 (08:53→10:08)
[2023-01-23] MEDS: PROzac PO SCH (08:53)
[2023-01-23] MEDS: SYNTHROID 100 mcg TAB PO SCH (08:54)
[2023-01-23] MEDS ORDERED: K-DUR TAB 20 MEQ PO SCH (09:00)
[2023-01-23] MEDS: PULMICORT NEB TX 0.5 MG NEB SCH ×2 (10:03→20:44)
[2023-01-23] MEDS: PROVENTIL NEB TX 0.083% 2.5MG/ 3ML NEB SCH ×2 (10:03→20:44)
[2023-01-23] MEDS: LOVENOX INJ 30 MG SYR SC SCH (10:06)
[2023-01-23] MEDS: XANAX PO PRN ×2 (14:53→22:06)
[2023-01-23] MEDS: NORCO 7.5/325 MG TAB PO PRN ×2 (14:55→23:03)
[2023-01-23] MEDS ORDERED: CATAPRES TAB 0.2 MG ONE (17:49)
[2023-01-23] MEDS: CATAPRES TAB 0.2 MG PO PRN ×2 (17:54→23:55)
--- NOTE | 2023-01-23 18:34 | DR.H&P ---
H&P History & Physical for Day of: H&P Date: 01/23/23 Chief Complaint Chief Complaint: Altered mental status Fall Allergies Allergies Allergy/AdvReac Type Severity Reaction Status Date / Time No Known Drug Allergies Allergy Unknown Verified 04/08/22 00:21 History of Present Illness History of Present Illness: Patient is a 62-year-old male with a past medical history of hypertension, hypothyroidism, COPD, osteoarthritis, anxiety disorder, presenting to the ER after having a fall. Patient admits to taking more of his medication than was prescribed. He is on opioids and benzodiazepine. In the ER he was noted to be hypotensive and still altered mentally. His UDS was positive for opioids and benzodiazepines. Labs/imaging: WBC 6.5, hemoglobin 9.2, platelets 199, sodium 137, potassium 3.7, creatinine 2.84>1.49, glucose 109, lactic acid 0.9, creatinine kinase 1986>[id number], UA negative, brain CT revealed no acute intracranial abnormalities. Patient was given fluid boluses and blood pressure responded appropriately. Will continue with IV fluids normal saline and reduce rate in the afternoon to 125 mL/h. Restart home medications. On exam patient is alert and oriented. He does have a OVIDIO drain on the right chest wall. Will consult general surgery for evaluation. He is unable to provide an explanation of why he has that drain. Otherwise, will continue to closely monitor and follow up labs. Time spent on clinical assessment, reviewing labs and imaging, decision making, and documentation greater than 45 minutes. Past Medical History Past Medical History: Anxiety, Arthritis, COPD, Depression, Dyslipidemia, Hypertension and Hypothyroidism Additional Medical History: LUNG MASS Past Surgical History Surgical History: Ortho Surgery Family History Family Medical History: Diabetes Mellitus and Coronary Artery Disease Social History Does patient currently use any type of tobacco product: Yes Have you used tobacco products in the last 12 months: Yes Type of Tobacco Use: Cigarettes Does any household member use tobacco: No Alcohol Use: None Drug Use: Marijuana Medications Home Medications: Home Medications Medication Instructions Recorded Confirmed Type alprazolam 1 mg tablet 1 mg PO TID PRN 01/22/23 01/22/23 History amlodipine 10 mg tablet 10 mg PO QDAY 01/22/23 01/22/23 History amoxicillin 875 mg-potassium 1 tab PO BID 01/22/23 01/22/23 History clavulanate 125 mg tablet budesonide-formoterol HFA 160 1 inh inhalation BID 01/22/23 01/22/23 History mcg-4.5 mcg/actuation aerosol inhaler (Symbicort) ciprofloxacin HCl 500 mg tablet 500 mg PO BID 01/22/23 01/22/23 History clindamycin HCl 300 mg capsule 300 mg PO TID 01/22/23 01/22/23 History clonidine HCl 0.2 mg tablet 0.2 mg PO BID 01/22/23 01/22/23 History fenofibrate 160 mg tablet 160 mg PO QDAY 01/22/23 01/22/23 History fluoxetine 40 mg capsule 40 mg PO QDAY 01/22/23 01/22/23 History furosemide 20 mg tablet 20 mg PO QDAY 01/22/23 01/22/23 History furosemide 20 mg tablet 20 mg PO QDAY 01/22/23 01/22/23 History hydrochlorothiazide 25 mg tablet 25 mg PO QDAY 01/22/23 01/22/23 History hydrochlorothiazide 25 mg tablet 25 mg PO QDAY 01/22/23 01/22/23 History hydrocodone 7.5 mg-acetaminophen 1 tab PO Q6H PRN 01/22/23 01/22/23 History 325 mg tablet levothyroxine 100 mcg tablet 100 mcg PO QDAY 01/22/23 01/22/23 History losartan 100 mg tablet 100 mg PO QDAY 01/22/23 01/22/23 History montelukast 10 mg tablet 10 mg PO QDAY 01/22/23 01/22/23 History potassium chloride 20 mEq 20 meq PO BID 01/22/23 01/22/23 History tablet,extended release(part/cryst) quetiapine 400 mg tablet 400 mg PO QPM 01/22/23 01/22/23 History simvastatin 20 mg tablet 20 mg PO QPM 01/22/23 01/22/23 History terazosin 1 mg capsule 1 mg PO QDAY 01/22/23 01/22/23 History tizanidine 4 mg tablet 8 mg PO BID 01/22/23 01/22/23 History Labs 01/23/23 04:00 01/23/23 04:00 Labs: Laboratory WBC 6.5 X10^3/uL (3.6-10.0) 01/23/23 04:00 RBC 3.14 X10^6/uL (4.7-6.0) L 01/23/23 04:00 Hgb 9.2 g/dL (13.5-18.0) L 01/23/23 04:00 Hct 27.2 % (42.0-54.0) L 01/23/23 04:00 MCV 86.7 fL (80.0-100.0) 01/23/23 04:00 MCH 29.4 pg (27.0-34.0) 01/23/23 04:00 MCHC 33.9 g/dL (33.0-35.0) 01/23/23 04:00 RDW 14.0 % (11.6-16.5) 01/23/23 04:00 Plt Count 199 X10^3/uL (150.0-450.0) 01/23/23 04:00 MPV 7.3 fL (7.4-11.0) L 01/23/23 04:00 Neut % (Auto) 81.9 % (42.0-75.0) H 01/23/23 04:00 Lymph % (Auto) 8.6 % (21.0-51.0) L 01/23/23 04:00 [place] % (Auto) 8.6 % (0.0-13.0) 01/23/23 04:00 Eos % (Auto) 0.7 % (0.9-2.9) L 01/23/23 04:00 Baso % (Auto) 0.2 % (0.2-1.0) 01/23/23 04:00 Neut # (Auto) 5.4 x10^3/uL (2.2-4.8) H 01/23/23 04:00 Lymph # (Auto) 0.6 X10^3/uL (1.3-2.9) L 01/23/23 04:00 [place] # (Auto) 0.6 x10^3/uL (0.3-0.8) 01/23/23 04:00 Eos # (Auto) 0.0 x10^3/uL (0.0-0.2) 01/23/23 04:00 Baso # (Auto) 0.0 X10^3/uL (0.0-0.1) 01/23/23 04:00 Absolute Nucleated RBC 0.0 /100WBC 01/23/23 04:00 Sodium 137 mmol/L (136-145) 01/23/23 04:00 Corrected Sodium TNP 01/23/23 04:00 Potassium 3.7 mmol/L (3.5-5.1) 01/23/23 04:00 Chloride 105 mmol/L (98-107) 01/23/23 04:00 Carbon Dioxide 25.4 mmol/L (21-32) 01/23/23 04:00 BUN 37 mg/dL (7-18) H 01/23/23 04:00 Creatinine 1.49 mg/dL (0.70-1.30) H 01/23/23 04:00 Est GFR (MDRD) Af Amer > 60 (>60) 01/23/23 04:00 Est GFR (MDRD) Non-Af 51 (>60) L 01/23/23 04:00 Glucose 109 mg/dL (65-99) H 01/23/23 04:00 Lactic Acid 0.9 mmol/L (0.4-2.0) 01/22/23 15:53 Calcium 7.6 mg/dL (8.5-10.1) L 01/23/23 04:00 Corrected Calcium 9.0 mg/dL (8.5-10.1) 01/23/23 04:00 Magnesium 1.7 mg/dL (2.0-2.9) L 01/23/23 04:00 Total Bilirubin 0.50 mg/dL (0.2-1.0) 01/23/23 04:00 AST 81 Units/L (15-37) H 01/23/23 04:00 ALT 50 Units/L (12-78) 01/23/23 04:00 Alkaline Phosphatase 67 Units/L (46-116) 01/23/23 04:00 Creatine Kinase 1582 Units/L (39-308) H 01/23/23 04:00 Troponin I High Sens 16.1 ng/L (4.0-60.0) 01/22/23 15:00 Total Protein 5.7 g/dL (6.4-8.2) L 01/23/23 04:00 Albumin 2.3 g/dL (3.4-5.0) L 01/23/23 04:00 Globulin 3.4 g/dL (2.5-4.5) 01/23/23 04:00 Albumin/Globulin Ratio 0.7 Ratio (1.1-2.1) L 01/23/23 04:00 Specimen Type Clean catch urine 01/22/23 14:40 Urine Color Yellow (YELLOW) 01/22/23 14:40 Urine Appearance Clear (CLEAR) 01/22/23 14:40 Urine pH 6.0 (5.0 - 8.0) 01/22/23 14:40 Ur Specific [place] 1.025 (1.000-1.030) 01/22/23 14:40 Urine Protein 2+ (NEGATIVE) 01/22/23 14:40 Urine Glucose (UA) Negative (NEGATIVE) 01/22/23 14:40 Urine Ketones Negative (NEGATIVE) 01/22/23 14:40 Urine Blood 1+ (NEGATIVE) 01/22/23 14:40 Urine Nitrite Negative (NEGATIVE) 01/22/23 14:40 Urine Bilirubin Negative (NEGATIVE) 01/22/23 14:40 Urine Urobilinogen Normal (NORMAL) 01/22/23 14:40 Ur Leukocyte Esterase Negative (NEGATIVE) 01/22/23 14:40 Urine RBC 0-2 /HPF (0-3) 01/22/23 14:40 Urine WBC 5-10 /HPF (0-5) A 01/22/23 14:40 Ur Squamous Epith Cells Rare /HPF (NEGATIVE) 01/22/23 14:40 Amorphous Sediment Trace /HPF (NEGATIVE) 01/22/23 14:40 Urine Bacteria Trace /HPF (NEGATIVE) 01/22/23 14:40 Hyaline Casts Few /LPF (NEGATIVE) 01/22/23 14:40 Urine Mucus Rare /HPF (NEGATIVE) 01/22/23 14:40 Ur Culture Indicated? No/not indicated 01/22/23 14:40 Urine Opiates Screen Positive (NEG=<300) 01/22/23 14:40 Urine Methadone Screen Negative (NEG=<300) 01/22/23 14:40 Ur Barbiturates Screen Negative (NEG=<200) 01/22/23 14:40 Ur Phencyclidine Scrn Negative (NEG=<25) 01/22/23 14:40 Ur Amphetamines Screen Negative (NEG=<1000) 01/22/23 14:40 U Benzodiazepines Scrn Positive (NEG=<200) 01/22/23 14:40 Urine Cocaine Screen Negative (NEG=<300) 01/22/23 14:40 U Marijuana (THC) Screen Negative (NEG=<50) 01/22/23 14:40 Review of Systems Constitutional: Weakness Eyes: No Symptoms Reported ENT: No Symptoms Reported Respiratory: No Symptoms Reported Cardiovascular: No Symptoms Reported Gastrointestinal: No Symptoms Reported Genitourinary: No Symptoms Reported Musculoskeletal: No Symptoms Reported Skin: No Symptoms Reported Neurological: No Symptoms Reported Physical Exam Vital Signs: Vital Signs Temperature 98.2 F Pulse Rate [Left Brachial] 104 Pulse Rate [Left Brachial] 97 Pulse Rate 99 Pulse Rate 99 Pulse Rate 100 Pulse Rate 100 Pulse Rate 97 Pulse Rate 100 Pulse Rate 100 Pulse Rate 100 Pulse Rate 104 Pulse Rate 103 Pulse Rate 103 Pulse Rate 104 Pulse Rate 103 Pulse Rate 98 Pulse Rate 97 Pulse Rate 98 Pulse Rate 97 Pulse Rate 97 Pulse Rate 97 Pulse Rate 98 Pulse Rate 95 Pulse Rate 98 Pulse Rate 97 Pulse Rate 97 Pulse Rate 97 Pulse Rate 98 Pulse Rate 99 Pulse Rate 103 Pulse Rate 97 Pulse Rate 99 Pulse Rate 98 Pulse Rate 99 Pulse Rate 93 Pulse Rate 97 Pulse Rate 96 Pulse Rate 97 Pulse Rate 95 Pulse Rate 96 Pulse Rate 97 Pulse Rate 99 Pulse Rate 100 Pulse Rate 100 Pulse Rate 95 Pulse Rate 99 Pulse Rate 102 Pulse Rate 99 Pulse Rate 103 Pulse Rate 100 Pulse Rate 103 Pulse Rate 104 Pulse Rate 104 Pulse Rate 107 Pulse Rate 107 Pulse Rate 108 Pulse Rate 105 Pulse Rate 103 Pulse Rate 99 Pulse Rate 101 Pulse Rate 97 Pulse Rate 103 Respiratory Rate 24 Respiratory Rate 27 Respiratory Rate 22 Respiratory Rate 27 Respiratory Rate 23 Respiratory Rate 23 Respiratory Rate 23 Respiratory Rate 26 Respiratory Rate 24 Respiratory Rate 36 Respiratory Rate 30 Respiratory Rate 27 Respiratory Rate 30 Respiratory Rate 23 Respiratory Rate 24 Respiratory Rate 21 Respiratory Rate 22 Respiratory Rate 22 Respiratory Rate 23 Respiratory Rate 22 Respiratory Rate 21 Respiratory Rate 17 Respiratory Rate 21 Respiratory Rate 23 Respiratory Rate 23 Respiratory Rate 22 Respiratory Rate 23 Respiratory Rate 21 Respiratory Rate 24 Respiratory Rate 23 Respiratory Rate 22 Respiratory Rate 22 Respiratory Rate 22 Respiratory Rate 23 Respiratory Rate 22 Respiratory Rate 26 Respiratory Rate 22 Respiratory Rate 24 Respiratory Rate 28 Respiratory Rate 26 Respiratory Rate 20 Respiratory Rate 22 Respiratory Rate 23 Respiratory Rate 23 Respiratory Rate 24 Respiratory Rate 24 Respiratory Rate 21 Respiratory Rate 25 Respiratory Rate 27 Respiratory Rate 25 Respiratory Rate 19 Respiratory Rate 22 Respiratory Rate 24 Respiratory Rate 29 Respiratory Rate 36 Respiratory Rate 39 Respiratory Rate 19 Respiratory Rate 21 Respiratory Rate 27 Respiratory Rate 26 Respiratory Rate 22 Respiratory Rate 25 Blood Pressure [Right Arm] 126/68 Blood Pressure [Right Arm] 165/67 Blood Pressure 191/88 Blood Pressure 183/84 Blood Pressure 187/89 Blood Pressure 187/89 Blood Pressure 187/90 Blood Pressure 187/90 Blood Pressure 187/81 Blood Pressure 184/85 Blood Pressure 177/79 Blood Pressure 173/82 Blood Pressure 174/81 Blood Pressure 167/77 Blood Pressure 173/80 Blood Pressure 162/74 Blood Pressure 169/78 Blood Pressure 176/76 Blood Pressure 164/71 Blood Pressure 174/78 Blood Pressure 180/75 Blood Pressure 166/73 Blood Pressure 165/72 Blood Pressure 166/72 Blood Pressure 143/69 Blood Pressure 171/77 Blood Pressure 168/74 Blood Pressure 163/73 Blood Pressure 163/72 Blood Pressure 157/72 Blood Pressure 170/70 Blood Pressure 170/70 Blood Pressure 170/70 Blood Pressure 144/64 Blood Pressure 144/64 Blood Pressure 151/68 Blood Pressure 175/81 Blood Pressure 183/81 Blood Pressure 159/70 Blood Pressure 156/71 Blood Pressure 149/85 Blood Pressure 154/83 Blood Pressure 160/67 Blood Pressure 126/68 Blood Pressure 121/58 Blood Pressure 140/62 Blood Pressure 146/85 Blood Pressure 126/69 Blood Pressure 167/76 Blood Pressure 165/67 Blood Pressure 172/81 O2 Sat by Pulse Oximetry 91 O2 Sat by Pulse Oximetry 90 O2 Sat by Pulse Oximetry 91 O2 Sat by Pulse Oximetry 92 O2 Sat by Pulse Oximetry 92 O2 Sat by Pulse Oximetry 92 O2 Sat by Pulse Oximetry 93 O2 Sat by Pulse Oximetry 93 O2 Sat by Pulse Oximetry 93 O2 Sat by Pulse Oximetry 92 O2 Sat by Pulse Oximetry 93 O2 Sat by Pulse Oximetry 94 O2 Sat by Pulse Oximetry 91 O2 Sat by Pulse Oximetry 93 O2 Sat by Pulse Oximetry 92 O2 Sat by Pulse Oximetry 93 O2 Sat by Pulse Oximetry 92 O2 Sat by Pulse Oximetry 93 O2 Sat by Pulse Oximetry 91 O2 Sat by Pulse Oximetry 93 O2 Sat by Pulse Oximetry 94 O2 Sat by Pulse Oximetry 94 O2 Sat by Pulse Oximetry 91 O2 Sat by Pulse Oximetry 93 O2 Sat by Pulse Oximetry 92 O2 Sat by Pulse Oximetry 93 O2 Sat by Pulse Oximetry 93 O2 Sat by Pulse Oximetry 94 O2 Sat by Pulse Oximetry 97 O2 Sat by Pulse Oximetry 97 O2 Sat by Pulse Oximetry 98 O2 Sat by Pulse Oximetry 100 O2 Sat by Pulse Oximetry 100 O2 Sat by Pulse Oximetry 95 O2 Sat by Pulse Oximetry 96 O2 Sat by Pulse Oximetry 98 O2 Sat by Pulse Oximetry 100 O2 Sat by Pulse Oximetry 100 O2 Sat by Pulse Oximetry 100 O2 Sat by Pulse Oximetry 100 O2 Sat by Pulse Oximetry 99 O2 Sat by Pulse Oximetry 99 O2 Sat by Pulse Oximetry 97 O2 Sat by Pulse Oximetry 98 O2 Sat by Pulse Oximetry 98 O2 Sat by Pulse Oximetry 97 O2 Sat by Pulse Oximetry 94 O2 Sat by Pulse Oximetry 98 O2 Sat by Pulse Oximetry 98 O2 Sat by Pulse Oximetry 97 O2 Sat by Pulse Oximetry 97 O2 Sat by Pulse Oximetry 97 O2 Sat by Pulse Oximetry 53 O2 Sat by Pulse Oximetry 99 O2 Sat by Pulse Oximetry 98 O2 Sat by Pulse Oximetry 99 O2 Sat by Pulse Oximetry 98 Oriented: Normal Eyes: Normal Ear: Normal Nose: Normal Throat: Normal Respiratory: Clear Throughout Cardiovascular: Normal : Normal Auscultation: Bowel Sounds: Normal Palpation: Normal Tenderness: Normal Skin: Normal Musculoskeletal: Normal Psychiatric: Normal Mood Description: Calm and Appropriate Affect: Normal Speech Pattern: Clear and Appropriate Assessment/Plan (1) Accidental drug overdose: Narrative Support Text: Patient alert and oriented. Continue closely monitor. Status: Acute (2) Rhabdomyolysis: Narrative Support Text: Creatinine kinase improving. Continue to trend. Continue IV fluids. Status: Acute (3) Acute renal failure: Narrative Support Text: Renal function improving. Continue IV fluids. Status: Acute (4) Acute hypotension: Narrative Support Text: Initially on admission. Has resolved now. Status: Acute (5) Hypertension: Status: None (6) Hyperlipidemia: Status: None (7) Chronic pain syndrome: Status: Acute Review H&P Reviewed: Yes Patient was examined?: Yes
[2023-01-23] MEDS ORDERED: APRESOLINE INJ 20 MG VIAL IVP ONE (19:25)
--- NOTE | 2023-01-23 20:05 | RAD ---
EXAM:CHEST, 1 VIEWHISTORY:OVIDIO DRAIN TO RIGHT CHEST WALL;COMPARISON:NoneFINDINGS:Heart: The cardiomediastinal silhouette is normal in size.Lungs: No acute airspace disease.Pleural space: No conspicuous pneumothorax or effusion.Bones:The bony thorax appears age appropriate.IMPRESSION:1. No acute cardiopulmonary disease.THIS IS AN ELECTRONICALLY VERIFIED FINAL [id number]/2023 7:59 PM - Electronically signed by Akil Daily DO
[2023-01-23] MEDS: ZOCOR TAB 20 MG PO SCH (20:47)
[2023-01-24] MEDS: NS 1,000 ML IV 1,000 ML IV SCH ×2 (04:06→05:50)
[2023-01-24 05:23] LABS: BASOPHILS % (AUTO) 0.2 % (0.2-1.0); EOSINOPHILS # (AUTO) 0.1 x10^3/uL (0.0-0.2); EOSINOPHILS % (AUTO) 1.2 % (0.9-2.9); LYMPHOCYTES # (AUTO) 0.7 X10^3/uL (1.3-2.9); LYMPHOCYTES % (AUTO) 12.3 % (21.0-51.0); MEAN CORPUSCULAR HEMOGLOBIN 29.2 pg (27.0-34.0); MEAN CORPUSCULAR HGB CONC 33.4 g/dL (33.0-35.0); MEAN CORPUSCULAR VOLUME 87.4 fL (80.0-100.0); MEAN PLATELET VOLUME 7.4 fL (7.4-11.0); MONOCYTES # (AUTO) 0.6 x10^3/uL (0.3-0.8); MONOCYTES % (AUTO) 9.9 % (0.0-13.0); NEUTROPHILS # (AUTO) 4.3 x10^3/uL (2.2-4.8); NEUTROPHILS % (AUTO) 76.4 % (42.0-75.0); PLATELET COUNT 211 X10^3/uL (150.0-450.0); RED BLOOD COUNT 3.09 X10^6/uL (4.7-6.0); RED CELL DISTRIBUTION WIDTH 14.6 % (11.6-16.5); WHITE BLOOD COUNT 5.6 X10^3/uL (3.6-10.0)
[2023-01-24 05:32] LABS: ALANINE AMINOTRANSFERASE 42 Units/L (12-78); ALKALINE PHOSPHATASE 60 Units/L (46-116); ASPARTATE AMINO TRANSFERASE 46 Units/L (15-37); BLOOD UREA NITROGEN 15 mg/dL (7-18); CALCIUM 8.2 mg/dL (8.5-10.1); CARBON DIOXIDE 30.9 mmol/L (21-32); CHLORIDE 105 mmol/L (98-107); COR CA(FOR HYPOALB) 9.8 mg/dL (8.5-10.1); CREATININE 0.83 mg/dL (0.70-1.30); GLUCOSE 100 mg/dL (65-99); SODIUM 138 mmol/L (136-145); TOTAL PROTEIN 5.5 g/dL (6.4-8.2); eGFR NON BLACK RACES > 60 (>60)
[2023-01-24] MEDS ORDERED: CONSULT PHARMACY - POTASSIUM & MAGNESIUM XX SCH (07:00)
[2023-01-24 08:32] VITALS: TEMP 97.8
[2023-01-24 08:45] VITALS: BMI 26.7
[2023-01-24] MEDS: PROzac PO SCH (08:47)
[2023-01-24] MEDS: SYNTHROID 100 mcg TAB PO SCH (08:47)
[2023-01-24] MEDS: MAG-OX TAB PO SCH ×2 (08:47→09:56)
[2023-01-24] MEDS: LOVENOX INJ 30 MG SYR SC SCH (08:48)
[2023-01-24] MEDS: PROVENTIL NEB TX 0.083% 2.5MG/ 3ML NEB SCH (09:13)
[2023-01-24] MEDS: PULMICORT NEB TX 0.5 MG NEB SCH (09:13)
[2023-01-24 11:15] VITALS: BP 154/72; PULSE 85; RESP 29; O2SAT 97
--- NOTE | 2023-01-26 14:14 | W.DIS.FURT ---
Summary of Discharge Discharge Summary of Date Date of Exam: 01/24/23 Admission Date Date of Admission: 01/22/23 Admission Diagnosis Patient Problems (Updated 01/25/23 @ 13:42 by Danny Sandra) Accidental drug overdose (Resolved) T50.901A Hypotension (Resolved) I95.9 Hospital Course: Patient is a 62-year-old male with a past medical history of hypertension, hypothyroidism, COPD, osteoarthritis, anxiety disorder, admitted for accidental drug overdose, altered mental status, and rhabdomyolysis. Pt admitted to taking too much of his home medications of opioids and benzodiazepine. Patient was gi jayden IV fluid boluses and IV fluids normal saline at rate of 125 mL/h. He did have a OVIDIO drain on the right chest wall that general surgery was consulted and monitoring. It was placed at [facility] after he had a fall. Surgery will follow up outpatient on OVIDIO drain. Otherwise, pt responded well to treatments. Renal function significantly improved and CK trending down. Pt instructed to take his medication only as prescribed. Pt discharged in stable condition, instructed to follow up with pcp in 1 week. Vital Signs: Vital Signs (72 hours) 01/22/23 13:30 01/22/23 14:06 01/22/23 14:11 Temperature 97.7 F Pulse Rate 51 L 50 L 52 L Pulse Rate [Left Brachial] Respiratory Rate 16 21 22 Blood Pressure 75/43 Blood Pressure [Right Arm] O2 Sat by Pulse Oximetry 85 L 96 98 Oxygen Delivery Method Room Air Oxygen Flow Rate FIO2% 01/22/23 14:11 01/22/23 14:15 01/22/23 14:20 Temperature Pulse Rate 57 L 52 L Pulse Rate [Left Brachial] Respiratory Rate 20 12 Blood Pressure 76/52 Blood Pressure [Right Arm] O2 Sat by Pulse Oximetry 96 98 Oxygen Delivery Method Oxygen Flow Rate FIO2% 01/22/23 14:20 01/22/23 14:30 01/22/23 14:30 Temperature Pulse Rate 53 L Pulse Rate [Left Brachial] Respiratory Rate 22 Blood Pressure 91/62 86/59 Blood Pressure [Right Arm] O2 Sat by Pulse Oximetry 97 Oxygen Delivery Method Oxygen Flow Rate FIO2% 01/22/23 14:41 01/22/23 14:41 01/22/23 14:45 Temperature Pulse Rate 54 L 56 L Pulse Rate [Left Brachial] Respiratory Rate 19 25 H Blood Pressure 78/45 Blood Pressure [Right Arm] O2 Sat by Pulse Oximetry 100 Oxygen Delivery Method Oxygen Flow Rate FIO2% 01/22/23 14:51 01/22/23 14:51 01/22/23 14:51 Temperature Pulse Rate 57 L Pulse Rate [Left Brachial] Respiratory Rate 17 Blood Pressure 102/67 102/67 Blood Pressure [Right Arm] O2 Sat by Pulse Oximetry 100 Oxygen Delivery Method Oxygen Flow Rate FIO2% 01/22/23 15:00 01/22/23 15:06 01/22/23 15:09 Temperature Pulse Rate 58 L 64 Pulse Rate [Left Brachial] Respiratory Rate 0 L 13 Blood Pressure 76/43 Blood Pressure [Right Arm] O2 Sat by Pulse Oximetry 95 Oxygen Delivery Method Oxygen Flow Rate FIO2% 01/22/23 15:10 01/22/23 15:15 01/22/23 15:20 Temperature Pulse Rate 70 76 Pulse Rate [Left Brachial] Respiratory Rate 16 24 Blood Pressure 99/51 Blood Pressure [Right Arm] O2 Sat by Pulse Oximetry 98 97 Oxygen Delivery Method Oxygen Flow Rate FIO2% 01/22/23 15:20 01/22/23 15:30 01/22/23 15:37 Temperature 93.9 F L Pulse Rate 84 Pulse Rate [Left Brachial] Respiratory Rate 15 Blood Pressure 92/53 Blood Pressure [Right Arm] O2 Sat by Pulse Oximetry 99 Oxygen Delivery Method Oxygen Flow Rate FIO2% 01/22/23 15:34 01/22/23 15:34 01/22/23 15:41 Temperature Pulse Rate 83 92 H Pulse Rate [Left Brachial] Respiratory Rate Blood Pressure 67/43 Blood Pressure [Right Arm] O2 Sat by Pulse Oximetry 98 99 Oxygen Delivery Method Oxygen Flow Rate FIO2% 01/22/23 15:41 01/22/23 15:45 01/22/23 16:00 Temperature Pulse Rate 96 H 99 H Pulse Rate [Left Brachial] Respiratory Rate Blood Pressure 85/53 Blood Pressure [Right Arm] O2 Sat by Pulse Oximetry 98 97 Oxygen Delivery Method Oxygen Flow Rate FIO2% 01/22/23 16:15 01/22/23 16:19 01/22/23 16:19 Temperature Pulse Rate 100 H 98 H Pulse Rate [Left Brachial] Respiratory Rate 18 16 Blood Pressure 88/54 Blood Pressure [Right Arm] O2 Sat by Pulse Oximetry 98 98 Oxygen Delivery Method Oxygen Flow Rate FIO2% 01/22/23 16:20 01/22/23 16:20 01/22/23 16:30 Temperature Pulse Rate 98 H 97 H Pulse Rate [Left Brachial] Respiratory Rate 16 17 Blood Pressure 92/46 Blood Pressure [Right Arm] O2 Sat by Pulse Oximetry 97 99 Oxygen Delivery Method Oxygen Flow Rate FIO2% 01/22/23 16:30 01/22/23 16:41 01/22/23 16:41 Temperature 94.4 F L Pulse Rate 97 H Pulse Rate [Left Brachial] Respiratory Rate 13 Blood Pressure 93/52 89/48 Blood Pressure [Right Arm] O2 Sat by Pulse Oximetry 98 Oxygen Delivery Method Oxygen Flow Rate FIO2% 01/22/23 16:45 01/22/23 16:50 01/22/23 16:50 Temperature Pulse Rate 99 H 97 H Pulse Rate [Left Brachial] Respiratory Rate 27 H 28 H Blood Pressure 84/48 Blood Pressure [Right Arm] O2 Sat by Pulse Oximetry 98 98 Oxygen Delivery Method Oxygen Flow Rate FIO2% 01/22/23 17:00 01/22/23 17:09 01/22/23 17:09 Temperature Pulse Rate 97 H Pulse Rate [Left Brachial] Respiratory Rate Blood Pressure 100/63 100/63 Blood Pressure [Right Arm] O2 Sat by Pulse Oximetry 97 Oxygen Delivery Method Oxygen Flow Rate FIO2% 01/22/23 17:09 01/22/23 17:10 01/22/23 17:10 Temperature Pulse Rate 100 H Pulse Rate [Left Brachial] Respiratory Rate 25 H Blood Pressure 68/41 68/41 Blood Pressure [Right Arm] O2 Sat by Pulse Oximetry 98 Oxygen Delivery Method Oxygen Flow Rate FIO2% 01/22/23 17:10 01/22/23 17:15 01/22/23 17:20 Temperature Pulse Rate 99 H 98 H Pulse Rate [Left Brachial] Respiratory Rate 94 H 17 Blood Pressure 78/42 Blood Pressure [Right Arm] O2 Sat by Pulse Oximetry 98 96 Oxygen Delivery Method Oxygen Flow Rate FIO2% 01/22/23 17:20 01/22/23 17:30 01/22/23 17:30 Temperature Pulse Rate 96 H 86 Pulse Rate [Left Brachial] Respiratory Rate 19 16 Blood Pressure 93/55 Blood Pressure [Right Arm] O2 Sat by Pulse Oximetry 97 98 Oxygen Delivery Method Oxygen Flow Rate FIO2% 01/22/23 17:40 01/22/23 17:40 01/22/23 17:45 Temperature Pulse Rate 84 82 Pulse Rate [Left Brachial] Respiratory Rate 19 20 Blood Pressure 102/58 Blood Pressure [Right Arm] O2 Sat by Pulse Oximetry 97 97 Oxygen Delivery Method Oxygen Flow Rate FIO2% 01/22/23 17:50 01/22/23 17:50 01/22/23 18:00 Temperature Pulse Rate 80 77 Pulse Rate [Left Brachial] Respiratory Rate 23 29 H Blood Pressure 108/55 Blood Pressure [Right Arm] O2 Sat by Pulse Oximetry 98 97 Oxygen Delivery Method Oxygen Flow Rate FIO2% 01/22/23 18:04 01/22/23 18:04 01/22/23 18:10 Temperature Pulse Rate 78 Pulse Rate [Left Brachial] Respiratory Rate 18 Blood Pressure 157/70 123/60 Blood Pressure [Right Arm] O2 Sat by Pulse Oximetry 98 Oxygen Delivery Method Oxygen Flow Rate FIO2% 01/22/23 18:10 01/22/23 18:15 01/22/23 18:20 Temperature Pulse Rate 75 81 80 Pulse Rate [Left Brachial] Respiratory Rate 21 28 H 24 Blood Pressure Blood Pressure [Right Arm] O2 Sat by Pulse Oximetry 98 98 98 Oxygen Delivery Method Oxygen Flow Rate FIO2% 01/22/23 18:20 01/22/23 18:30 01/22/23 18:30 Temperature Pulse Rate 80 Pulse Rate [Left Brachial] Respiratory Rate 22 Blood Pressure 123/55 144/77 Blood Pressure [Right Arm] O2 Sat by Pulse Oximetry 98 Oxygen Delivery Method Oxygen Flow Rate FIO2% 01/22/23 18:41 01/22/23 18:41 01/22/23 18:45 Temperature Pulse Rate 80 84 Pulse Rate [Left Brachial] Respiratory Rate 18 26 H Blood Pressure 132/69 Blood Pressure [Right Arm] O2 Sat by Pulse Oximetry 96 97 Oxygen Delivery Method Oxygen Flow Rate FIO2% 01/22/23 18:50 01/22/23 18:50 01/22/23 19:00 Temperature Pulse Rate 82 Pulse Rate [Left Brachial] Respiratory Rate 19 Blood Pressure 138/67 130/65 Blood Pressure [Right Arm] O2 Sat by Pulse Oximetry 97 Oxygen Delivery Method Oxygen Flow Rate FIO2% 01/22/23 19:00 01/22/23 19:10 01/22/23 19:10 Temperature 97.2 F L Pulse Rate 86 85 Pulse Rate [Left Brachial] Respiratory Rate 21 23 Blood Pressure 138/70 Blood Pressure [Right Arm] O2 Sat by Pulse Oximetry 97 97 Oxygen Delivery Method Oxygen Flow Rate FIO2% 01/22/23 19:15 01/22/23 19:20 01/22/23 19:20 Temperature Pulse Rate 86 91 H Pulse Rate [Left Brachial] Respiratory Rate 28 H 29 H Blood Pressure 140/69 Blood Pressure [Right Arm] O2 Sat by Pulse Oximetry 97 97 Oxygen Delivery Method Oxygen Flow Rate FIO2% 01/22/23 19:30 01/22/23 19:30 01/22/23 19:44 Temperature Pulse Rate 86 91 H Pulse Rate [Left Brachial] Respiratory Rate 17 17 Blood Pressure 143/68 Blood Pressure [Right Arm] O2 Sat by Pulse Oximetry 93 L 94 L Oxygen Delivery Method Oxygen Flow Rate FIO2% 01/22/23 19:44 01/22/23 19:45 01/22/23 19:50 Temperature Pulse Rate 92 H 90 Pulse Rate [Left Brachial] Respiratory Rate 22 19 Blood Pressure 139/93 Blood Pressure [Right Arm] O2 Sat by Pulse Oximetry 95 92 L Oxygen Delivery Method Oxygen Flow Rate FIO2% 01/22/23 19:50 01/22/23 19:50 01/22/23 20:00 Temperature Pulse Rate 93 H Pulse Rate [Left Brachial] Respiratory Rate 24 Blood Pressure 148/87 148/87 Blood Pressure [Right Arm] O2 Sat by Pulse Oximetry 97 Oxygen Delivery Method Oxygen Flow Rate FIO2% 01/22/23 20:00 01/22/23 20:10 01/22/23 20:10 Temperature Pulse Rate Pulse Rate [Left Brachial] Respiratory Rate Blood Pressure 137/77 135/69 135/69 Blood Pressure [Right Arm] O2 Sat by Pulse Oximetry Oxygen Delivery Method Oxygen Flow Rate FIO2% 01/22/23 20:10 01/22/23 20:15 01/22/23 20:20 Temperature Pulse Rate 92 H 94 H 93 H Pulse Rate [Left Brachial] Respiratory Rate 21 24 20 Blood Pressure Blood Pressure [Right Arm] O2 Sat by Pulse Oximetry 93 L 94 L 92 L Oxygen Delivery Method Oxygen Flow Rate FIO2% 01/22/23 20:20 01/22/23 20:20 01/22/23 20:20 Temperature Pulse Rate Pulse Rate [Left Brachial] Respiratory Rate Blood Pressure 141/76 141/76 141/76 Blood Pressure [Right Arm] O2 Sat by Pulse Oximetry Oxygen Delivery Method Oxygen Flow Rate FIO2% 01/22/23 20:30 01/22/23 20:30 01/22/23 20:40 Temperature Pulse Rate 96 H 95 H Pulse Rate [Left Brachial] Respiratory Rate 21 27 H Blood Pressure 143/73 Blood Pressure [Right Arm] O2 Sat by Pulse Oximetry 95 95 Oxygen Delivery Method Oxygen Flow Rate FIO2% 01/22/23 20:40 01/22/23 20:50 01/22/23 20:50 Temperature 98.8 F Pulse Rate Pulse Rate [Left Brachial] 100 H Respiratory Rate 19 Blood Pressure 141/66 Blood Pressure [Right Arm] 122/77 O2 Sat by Pulse Oximetry 95 Oxygen Delivery Method Nasal Cannula Nasal Cannula Oxygen Flow Rate 2 FIO2% 01/22/23 22:06 01/22/23 23:00 01/23/23 00:00 Temperature 98.6 F Pulse Rate Pulse Rate [Left Brachial] 95 H 97 H 94 H Respiratory Rate 17 22 19 Blood Pressure Blood Pressure [Right Arm] 136/60 148/73 165/72 O2 Sat by Pulse Oximetry 97 97 97 Oxygen Delivery Method Nasal Cannula Nasal Cannula Nasal Cannula Oxygen Flow Rate FIO2% 01/23/23 01:00 01/23/23 02:00 01/23/23 03:00 Temperature Pulse Rate Pulse Rate [Left Brachial] 95 H 95 H 97 H Respiratory Rate 19 19 25 H Blood Pressure Blood Pressure [Right Arm] 168/77 169/75 163/75 O2 Sat by Pulse Oximetry 98 97 97 Oxygen Delivery Method Nasal Cannula Nasal Cannula Nasal Cannula Oxygen Flow Rate FIO2% 01/23/23 04:00 01/23/23 05:00 01/23/23 06:00 Temperature 98.1 F Pulse Rate Pulse Rate [Left Brachial] 93 H 96 H 97 H Respiratory Rate 27 H 19 23 Blood Pressure Blood Pressure [Right Arm] 158/70 177/80 186/79 O2 Sat by Pulse Oximetry 98 99 99 Oxygen Delivery Method Nasal Cannula Nasal Cannula Nasal Cannula Oxygen Flow Rate FIO2% 01/23/23 06:05 01/23/23 06:18 01/23/23 06:28 Temperature Pulse Rate Pulse Rate [Left Brachial] Respiratory Rate Blood Pressure Blood Pressure [Right Arm] 200/70 178/78 187/81 O2 Sat by Pulse Oximetry Oxygen Delivery Method Oxygen Flow Rate FIO2% 01/23/23 07:00 01/23/23 07:00 01/23/23 08:00 Temperature 98.2 F Pulse Rate Pulse Rate [Left Brachial] 97 H 104 H Respiratory Rate 22 19 Blood Pressure Blood Pressure [Right Arm] 165/67 126/68 O2 Sat by Pulse Oximetry Oxygen Delivery Method Nasal Cannula Nasal Cannula Nasal Cannula Oxygen Flow Rate 2 FIO2% 01/23/23 06:50 01/23/23 06:50 01/23/23 07:00 Temperature Pulse Rate 103 H Pulse Rate [Left Brachial] Respiratory Rate 25 H Blood Pressure 172/81 165/67 Blood Pressure [Right Arm] O2 Sat by Pulse Oximetry 98 Oxygen Delivery Method Oxygen Flow Rate FIO2% 01/23/23 07:00 01/23/23 07:10 01/23/23 07:10 Temperature Pulse Rate 97 H 101 H Pulse Rate [Left Brachial] Respiratory Rate 26 H 27 H Blood Pressure 167/76 Blood Pressure [Right Arm] O2 Sat by Pulse Oximetry 99 98 Oxygen Delivery Method Oxygen Flow Rate FIO2% 01/23/23 07:15 01/23/23 07:21 01/23/23 07:21 Temperature Pulse Rate 99 H 103 H Pulse Rate [Left Brachial] Respiratory Rate 21 19 Blood Pressure 126/69 Blood Pressure [Right Arm] O2 Sat by Pulse Oximetry 99 Oxygen Delivery Method Oxygen Flow Rate FIO2% 01/23/23 07:30 01/23/23 07:31 01/23/23 07:31 Temperature Pulse Rate 105 H 108 H Pulse Rate [Left Brachial] Respiratory Rate 39 H 36 H Blood Pressure 146/85 Blood Pressure [Right Arm] O2 Sat by Pulse Oximetry Oxygen Delivery Method Oxygen Flow Rate FIO2% 01/23/23 07:40 01/23/23 07:40 01/23/23 07:45 Temperature Pulse Rate 107 H 107 H Pulse Rate [Left Brachial] Respiratory Rate 29 H 24 Blood Pressure 140/62 Blood Pressure [Right Arm] O2 Sat by Pulse Oximetry 53 L 97 Oxygen Delivery Method Oxygen Flow Rate FIO2% 01/23/23 07:50 01/23/23 07:50 01/23/23 08:00 Temperature Pulse Rate 104 H 104 H Pulse Rate [Left Brachial] Respiratory Rate 22 25 H Blood Pressure 121/58 Blood Pressure [Right Arm] O2 Sat by Pulse Oximetry 97 97 Oxygen Delivery Method Oxygen Flow Rate FIO2% 01/23/23 08:00 01/23/23 08:11 01/23/23 08:11 Temperature Pulse Rate 103 H Pulse Rate [Left Brachial] Respiratory Rate 27 H Blood Pressure 126/68 160/67 Blood Pressure [Right Arm] O2 Sat by Pulse Oximetry 98 Oxygen Delivery Method Oxygen Flow Rate FIO2% 01/23/23 08:15 01/23/23 08:21 01/23/23 08:21 Temperature Pulse Rate 100 H 103 H Pulse Rate [Left Brachial] Respiratory Rate 25 H 21 Blood Pressure 154/83 Blood Pressure [Right Arm] O2 Sat by Pulse Oximetry 98 94 L Oxygen Delivery Method Oxygen Flow Rate FIO2% 01/23/23 08:30 01/23/23 08:30 01/23/23 08:40 Temperature Pulse Rate 99 H Pulse Rate [Left Brachial] Respiratory Rate 24 Blood Pressure 149/85 156/71 Blood Pressure [Right Arm] O2 Sat by Pulse Oximetry 97 Oxygen Delivery Method Oxygen Flow Rate FIO2% 01/23/23 08:40 01/23/23 08:45 01/23/23 08:51 Temperature Pulse Rate 102 H 99 H 95 H Pulse Rate [Left Brachial] Respiratory Rate 24 23 23 Blood Pressure Blood Pressure [Right Arm] O2 Sat by Pulse Oximetry 98 98 97 Oxygen Delivery Method Oxygen Flow Rate FIO2% 01/23/23 08:51 01/23/23 09:00 01/23/23 09:00 Temperature Pulse Rate 100 H Pulse Rate [Left Brachial] Respiratory Rate 22 Blood Pressure 159/70 183/81 Blood Pressure [Right Arm] O2 Sat by Pulse Oximetry 99 Oxygen Delivery Method Oxygen Flow Rate FIO2% 01/23/23 09:10 01/23/23 09:10 01/23/23 09:15 Temperature Pulse Rate 100 H 99 H Pulse Rate [Left Brachial] Respiratory Rate 20 26 H Blood Pressure 175/81 Blood Pressure [Right Arm] O2 Sat by Pulse Oximetry 99 100 Oxygen Delivery Method Oxygen Flow Rate FIO2% 01/23/23 09:20 01/23/23 09:20 01/23/23 09:30 Temperature Pulse Rate 97 H 96 H Pulse Rate [Left Brachial] Respiratory Rate 28 H 24 Blood Pressure 151/68 Blood Pressure [Right Arm] O2 Sat by Pulse Oximetry 100 100 Oxygen Delivery Method Oxygen Flow Rate FIO2% 01/23/23 09:30 01/23/23 09:30 01/23/23 09:40 Temperature Pulse Rate Pulse Rate [Left Brachial] Respiratory Rate Blood Pressure 144/64 144/64 170/70 Blood Pressure [Right Arm] O2 Sat by Pulse Oximetry Oxygen Delivery Method Oxygen Flow Rate FIO2% 01/23/23 09:40 01/23/23 09:40 01/23/23 09:40 Temperature Pulse Rate 95 H Pulse Rate [Left Brachial] Respiratory Rate 22 Blood Pressure 170/70 170/70 Blood Pressure [Right Arm] O2 Sat by Pulse Oximetry 100 Oxygen Delivery Method Oxygen Flow Rate FIO2% 01/23/23 09:45 01/23/23 09:50 01/23/23 09:50 Temperature Pulse Rate 97 H 96 H Pulse Rate [Left Brachial] Respiratory Rate 26 H 22 Blood Pressure 157/72 Blood Pressure [Right Arm] O2 Sat by Pulse Oximetry 98 96 Oxygen Delivery Method Oxygen Flow Rate FIO2% 01/23/23 10:00 01/23/23 10:00 01/23/23 10:10 Temperature Pulse Rate 97 H 93 H Pulse Rate [Left Brachial] Respiratory Rate 23 22 Blood Pressure 163/72 Blood Pressure [Right Arm] O2 Sat by Pulse Oximetry 95 100 Oxygen Delivery Method Oxygen Flow Rate FIO2% 01/23/23 10:10 01/23/23 10:15 01/23/23 10:20 Temperature Pulse Rate 99 H 98 H Pulse Rate [Left Brachial] Respiratory Rate 22 22 Blood Pressure 163/73 Blood Pressure [Right Arm] O2 Sat by Pulse Oximetry 100 98 Oxygen Delivery Method Oxygen Flow Rate FIO2% 01/23/23 10:20 01/23/23 10:30 01/23/23 10:30 Temperature Pulse Rate 99 H Pulse Rate [Left Brachial] Respiratory Rate 23 Blood Pressure 168/74 171/77 Blood Pressure [Right Arm] O2 Sat by Pulse Oximetry 97 Oxygen Delivery Method Oxygen Flow Rate FIO2% 01/23/23 10:45 01/23/23 10:50 01/23/23 10:50 Temperature Pulse Rate 97 H 103 H Pulse Rate [Left Brachial] Respiratory Rate 24 21 Blood Pressure 143/69 Blood Pressure [Right Arm] O2 Sat by Pulse Oximetry 97 94 L Oxygen Delivery Method Oxygen Flow Rate FIO2% 01/23/23 11:00 01/23/23 11:01 01/23/23 11:01 Temperature Pulse Rate 99 H 98 H Pulse Rate [Left Brachial] Respiratory Rate 23 22 Blood Pressure 166/72 Blood Pressure [Right Arm] O2 Sat by Pulse Oximetry 93 L 93 L Oxygen Delivery Method Oxygen Flow Rate FIO2% 01/23/23 11:10 01/23/23 11:10 01/23/23 11:15 Temperature Pulse Rate 97 H 97 H Pulse Rate [Left Brachial] Respiratory Rate 23 23 Blood Pressure 165/72 Blood Pressure [Right Arm] O2 Sat by Pulse Oximetry 92 L 93 L Oxygen Delivery Method Oxygen Flow Rate FIO2% 01/23/23 11:20 01/23/23 11:20 01/23/23 11:30 Temperature Pulse Rate 97 H 98 H Pulse Rate [Left Brachial] Respiratory Rate 21 17 Blood Pressure 166/73 Blood Pressure [Right Arm] O2 Sat by Pulse Oximetry 91 L 94 L Oxygen Delivery Method Oxygen Flow Rate FIO2% 01/23/23 11:30 01/23/23 11:40 01/23/23 11:40 Temperature Pulse Rate 95 H Pulse Rate [Left Brachial] Respiratory Rate 21 Blood Pressure 180/75 174/78 Blood Pressure [Right Arm] O2 Sat by Pulse Oximetry 94 L Oxygen Delivery Method Oxygen Flow Rate FIO2% 01/23/23 11:45 01/23/23 11:50 01/23/23 11:50 Temperature Pulse Rate 98 H 97 H Pulse Rate [Left Brachial] Respiratory Rate 22 23 Blood Pressure 164/71 Blood Pressure [Right Arm] O2 Sat by Pulse Oximetry 93 L 91 L Oxygen Delivery Method Oxygen Flow Rate FIO2% 01/23/23 12:00 01/23/23 12:00 01/23/23 12:10 Temperature Pulse Rate 97 H Pulse Rate [Left Brachial] Respiratory Rate 22 Blood Pressure 176/76 169/78 Blood Pressure [Right Arm] O2 Sat by Pulse Oximetry 93 L Oxygen Delivery Method Oxygen Flow Rate FIO2% 01/23/23 12:10 01/23/23 12:15 01/23/23 12:20 Temperature Pulse Rate 97 H 98 H 97 H Pulse Rate [Left Brachial] Respiratory Rate 22 21 24 Blood Pressure Blood Pressure [Right Arm] O2 Sat by Pulse Oximetry 92 L 93 L 92 L Oxygen Delivery Method Oxygen Flow Rate FIO2% 01/23/23 12:20 01/23/23 12:30 01/23/23 12:30 Temperature Pulse Rate 98 H Pulse Rate [Left Brachial] Respiratory Rate 23 Blood Pressure 162/74 173/80 Blood Pressure [Right Arm] O2 Sat by Pulse Oximetry 93 L Oxygen Delivery Method Oxygen Flow Rate FIO2% 01/23/23 12:40 01/23/23 12:40 01/23/23 12:45 Temperature Pulse Rate 103 H 104 H Pulse Rate [Left Brachial] Respiratory Rate 30 H 27 H Blood Pressure 167/77 Blood Pressure [Right Arm] O2 Sat by Pulse Oximetry 91 L 94 L Oxygen Delivery Method Oxygen Flow Rate FIO2% 01/23/23 12:50 01/23/23 12:50 01/23/23 13:00 Temperature Pulse Rate 103 H Pulse Rate [Left Brachial] Respiratory Rate 30 H Blood Pressure 174/81 173/82 Blood Pressure [Right Arm] O2 Sat by Pulse Oximetry 93 L Oxygen Delivery Method Oxygen Flow Rate FIO2% 01/23/23 13:00 01/23/23 13:10 01/23/23 13:10 Temperature Pulse Rate 103 H 104 H Pulse Rate [Left Brachial] Respiratory Rate 36 H 24 Blood Pressure 177/79 Blood Pressure [Right Arm] O2 Sat by Pulse Oximetry 92 L 93 L Oxygen Delivery Method Oxygen Flow Rate FIO2% 01/23/23 13:15 01/23/23 13:20 01/23/23 13:20 Temperature Pulse Rate 100 H 100 H Pulse Rate [Left Brachial] Respiratory Rate 26 H 23 Blood Pressure 184/85 Blood Pressure [Right Arm] O2 Sat by Pulse Oximetry 93 L 93 L Oxygen Delivery Method Oxygen Flow Rate FIO2% 01/23/23 13:30 01/23/23 13:30 01/23/23 13:40 Temperature Pulse Rate 100 H Pulse Rate [Left Brachial] Respiratory Rate 23 Blood Pressure 187/81 187/90 Blood Pressure [Right Arm] O2 Sat by Pulse Oximetry 92 L Oxygen Delivery Method Oxygen Flow Rate FIO2% 01/23/23 13:40 01/23/23 13:40 01/23/23 13:45 Temperature Pulse Rate 97 H 100 H Pulse Rate [Left Brachial] Respiratory Rate 23 27 H Blood Pressure 187/90 Blood Pressure [Right Arm] O2 Sat by Pulse Oximetry 92 L 92 L Oxygen Delivery Method Oxygen Flow Rate FIO2% 01/23/23 13:50 01/23/23 13:50 01/23/23 13:50 Temperature Pulse Rate 100 H Pulse Rate [Left Brachial] Respiratory Rate 22 Blood Pressure 187/89 187/89 Blood Pressure [Right Arm] O2 Sat by Pulse Oximetry 91 L Oxygen Delivery Method Oxygen Flow Rate FIO2% 01/23/23 14:00 01/23/23 14:00 01/23/23 14:10 Temperature Pulse Rate 99 H Pulse Rate [Left Brachial] Respiratory Rate 27 H Blood Pressure 183/84 191/88 Blood Pressure [Right Arm] O2 Sat by Pulse Oximetry 90 L Oxygen Delivery Method Oxygen Flow Rate FIO2% 01/23/23 14:10 01/23/23 10:03 01/23/23 14:55 Temperature Pulse Rate 99 H Pulse Rate [Left Brachial] Respiratory Rate 24 20 Blood Pressure Blood Pressure [Right Arm] O2 Sat by Pulse Oximetry 91 L Oxygen Delivery Method Nasal Cannula Oxygen Flow Rate 4 FIO2% 36 01/23/23 14:15 01/23/23 14:20 01/23/23 14:20 Temperature Pulse Rate 100 H 98 H Pulse Rate [Left Brachial] Respiratory Rate 24 26 H Blood Pressure 193/89 Blood Pressure [Right Arm] O2 Sat by Pulse Oximetry 91 L 90 L Oxygen Delivery Method Oxygen Flow Rate FIO2% 01/23/23 14:30 01/23/23 14:30 01/23/23 14:32 Temperature Pulse Rate 104 H 104 H Pulse Rate [Left Brachial] Respiratory Rate 28 H 28 H Blood Pressure 196/93 Blood Pressure [Right Arm] O2 Sat by Pulse Oximetry 89 L 91 L Oxygen Delivery Method Oxygen Flow Rate FIO2% 01/23/23 14:32 01/23/23 14:40 01/23/23 14:40 Temperature Pulse Rate 97 H Pulse Rate [Left Brachial] Respiratory Rate 25 H Blood Pressure 186/84 195/87 Blood Pressure [Right Arm] O2 Sat by Pulse Oximetry 91 L Oxygen Delivery Method Oxygen Flow Rate FIO2% 01/23/23 14:45 01/23/23 14:50 01/23/23 14:50 Temperature Pulse Rate 100 H Pulse Rate [Left Brachial] Respiratory Rate 27 H Blood Pressure 207/94 207/94 Blood Pressure [Right Arm] O2 Sat by Pulse Oximetry 90 L Oxygen Delivery Method Oxygen Flow Rate FIO2% 01/23/23 14:50 01/23/23 15:00 01/23/23 15:00 Temperature Pulse Rate 101 H 99 H Pulse Rate [Left Brachial] Respiratory Rate 26 H 25 H Blood Pressure 205/95 Blood Pressure [Right Arm] O2 Sat by Pulse Oximetry 89 L 90 L Oxygen Delivery Method Oxygen Flow Rate FIO2% 01/23/23 15:00 01/23/23 15:10 01/23/23 15:10 Temperature Pulse Rate 98 H Pulse Rate [Left Brachial] Respiratory Rate 26 H Blood Pressure 205/95 197/84 Blood Pressure [Right Arm] O2 Sat by Pulse Oximetry 90 L Oxygen Delivery Method Oxygen Flow Rate FIO2% 01/23/23 15:15 01/23/23 15:21 01/23/23 15:21 Temperature Pulse Rate 99 H 97 H Pulse Rate [Left Brachial] Respiratory Rate 29 H 34 H Blood Pressure 203/101 Blood Pressure [Right Arm] O2 Sat by Pulse Oximetry 91 L 92 L Oxygen Delivery Method Oxygen Flow Rate FIO2% 01/23/23 15:30 01/23/23 15:33 01/23/23 15:33 Temperature Pulse Rate 102 H 104 H Pulse Rate [Left Brachial] Respiratory Rate 30 H 34 H Blood Pressure 118/63 Blood Pressure [Right Arm] O2 Sat by Pulse Oximetry 91 L 90 L Oxygen Delivery Method Oxygen Flow Rate FIO2% 01/23/23 15:41 01/23/23 15:41 01/23/23 15:45 Temperature Pulse Rate 103 H 103 H Pulse Rate [Left Brachial] Respiratory Rate 30 H 36 H Blood Pressure 157/71 Blood Pressure [Right Arm] O2 Sat by Pulse Oximetry 91 L 91 L Oxygen Delivery Method Oxygen Flow Rate FIO2% 01/23/23 15:55 01/23/23 15:50 01/23/23 15:50 Temperature Pulse Rate Pulse Rate [Left Brachial] Respiratory Rate 20 Blood Pressure 195/88 195/88 Blood Pressure [Right Arm] O2 Sat by Pulse Oximetry Oxygen Delivery Method Oxygen Flow Rate FIO2% 01/23/23 15:50 01/23/23 16:00 01/23/23 16:00 Temperature Pulse Rate 101 H 100 H Pulse Rate [Left Brachial] Respiratory Rate 26 H 32 H Blood Pressure 170/74 Blood Pressure [Right Arm] O2 Sat by Pulse Oximetry 92 L 92 L Oxygen Delivery Method Oxygen Flow Rate FIO2% 01/23/23 16:10 01/23/23 16:10 01/23/23 16:15 Temperature Pulse Rate 101 H 101 H Pulse Rate [Left Brachial] Respiratory Rate 28 H 28 H Blood Pressure 193/90 Blood Pressure [Right Arm] O2 Sat by Pulse Oximetry 91 L 92 L Oxygen Delivery Method Oxygen Flow Rate FIO2% 01/23/23 16:20 01/23/23 16:20 01/23/23 16:30 Temperature Pulse Rate 100 H Pulse Rate [Left Brachial] Respiratory Rate 28 H Blood Pressure 188/86 200/92 Blood Pressure [Right Arm] O2 Sat by Pulse Oximetry 93 L Oxygen Delivery Method Oxygen Flow Rate FIO2% 01/23/23 16:30 01/23/23 16:40 01/23/23 16:40 Temperature Pulse Rate 97 H 97 H Pulse Rate [Left Brachial] Respiratory Rate 22 40 H Blood Pressure 199/85 Blood Pressure [Right Arm] O2 Sat by Pulse Oximetry 99 100 Oxygen Delivery Method Oxygen Flow Rate FIO2% 01/23/23 16:45 01/23/23 16:50 01/23/23 16:50 Temperature Pulse Rate 96 H 96 H Pulse Rate [Left Brachial] Respiratory Rate 26 H 26 H Blood Pressure 194/92 Blood Pressure [Right Arm] O2 Sat by Pulse Oximetry 99 99 Oxygen Delivery Method Oxygen Flow Rate FIO2% 01/23/23 17:00 01/23/23 17:01 01/23/23 17:01 Temperature Pulse Rate 102 H 101 H Pulse Rate [Left Brachial] Respiratory Rate 40 H 37 H Blood Pressure 201/96 Blood Pressure [Right Arm] O2 Sat by Pulse Oximetry 97 96 Oxygen Delivery Method Oxygen Flow Rate FIO2% 01/23/23 17:11 01/23/23 17:11 01/23/23 17:15 Temperature Pulse Rate 98 H 103 H Pulse Rate [Left Brachial] Respiratory Rate 23 Blood Pressure 210/99 Blood Pressure [Right Arm] O2 Sat by Pulse Oximetry 97 95 Oxygen Delivery Method Oxygen Flow Rate FIO2% 01/23/23 17:20 01/23/23 17:20 01/23/23 17:29 Temperature Pulse Rate 100 H Pulse Rate [Left Brachial] Respiratory Rate Blood Pressure 215/102 201/97 Blood Pressure [Right Arm] O2 Sat by Pulse Oximetry 99 Oxygen Delivery Method Oxygen Flow Rate FIO2% 01/23/23 17:29 01/23/23 17:30 01/23/23 17:30 Temperature Pulse Rate 99 H 98 H Pulse Rate [Left Brachial] Respiratory Rate 37 H 26 H Blood Pressure 206/91 Blood Pressure [Right Arm] O2 Sat by Pulse Oximetry 100 99 Oxygen Delivery Method Oxygen Flow Rate FIO2% 01/23/23 17:40 01/23/23 17:40 01/23/23 17:45 Temperature Pulse Rate 103 H 102 H Pulse Rate [Left Brachial] Respiratory Rate 32 H 36 H Blood Pressure 210/98 Blood Pressure [Right Arm] O2 Sat by Pulse Oximetry 96 96 Oxygen Delivery Method Oxygen Flow Rate FIO2% 01/23/23 17:50 01/23/23 17:50 01/23/23 18:00 Temperature Pulse Rate 101 H Pulse Rate [Left Brachial] Respiratory Rate 23 Blood Pressure 188/89 204/95 Blood Pressure [Right Arm] O2 Sat by Pulse Oximetry 93 L Oxygen Delivery Method Oxygen Flow Rate FIO2% 01/23/23 18:00 01/23/23 18:08 01/23/23 18:08 Temperature Pulse Rate 98 H 101 H Pulse Rate [Left Brachial] Respiratory Rate 37 H 44 H Blood Pressure 198/81 Blood Pressure [Right Arm] O2 Sat by Pulse Oximetry 94 L 93 L Oxygen Delivery Method Oxygen Flow Rate FIO2% 01/23/23 18:09 01/23/23 18:09 01/23/23 18:10 Temperature Pulse Rate 100 H 99 H Pulse Rate [Left Brachial] Respiratory Rate 38 H 25 H Blood Pressure 191/82 Blood Pressure [Right Arm] O2 Sat by Pulse Oximetry 94 L 94 L Oxygen Delivery Method Oxygen Flow Rate FIO2% 01/23/23 18:10 01/23/23 18:11 01/23/23 18:11 Temperature Pulse Rate 98 H Pulse Rate [Left Brachial] Respiratory Rate 27 H Blood Pressure 182/84 173/79 Blood Pressure [Right Arm] O2 Sat by Pulse Oximetry 96 Oxygen Delivery Method Oxygen Flow Rate FIO2% 01/23/23 19:18 01/23/23 19:00 01/23/23 20:00 Temperature 98.5 F Pulse Rate 91 H 94 H Pulse Rate [Left Brachial] Respiratory Rate 25 H 28 H Blood Pressure 212/90 183/86 Blood Pressure [Right Arm] O2 Sat by Pulse Oximetry 98 97 Oxygen Delivery Method Nasal Cannula Nasal Cannula Nasal Cannula Oxygen Flow Rate 2 2 2 FIO2% 01/23/23 21:00 01/23/23 21:30 01/23/23 22:00 Temperature Pulse Rate 94 H 94 H 93 H Pulse Rate [Left Brachial] Respiratory Rate 22 32 H 19 Blood Pressure 178/76 170/77 176/80 Blood Pressure [Right Arm] O2 Sat by Pulse Oximetry 97 96 96 Oxygen Delivery Method Nasal Cannula Nasal Cannula Nasal Cannula Oxygen Flow Rate 2 2 2 FIO2% 01/23/23 23:03 01/23/23 23:00 01/23/23 23:30 Temperature Pulse Rate 91 H 94 H Pulse Rate [Left Brachial] Respiratory Rate 22 22 21 Blood Pressure 178/80 171/73 Blood Pressure [Right Arm] O2 Sat by Pulse Oximetry 95 96 Oxygen Delivery Method Nasal Cannula Nasal Cannula Oxygen Flow Rate 2 2 FIO2% 01/24/23 00:00 01/24/23 00:03 01/24/23 01:00 Temperature 98.5 F Pulse Rate 88 84 Pulse Rate [Left Brachial] Respiratory Rate 23 22 19 Blood Pressure 152/70 159/72 Blood Pressure [Right Arm] O2 Sat by Pulse Oximetry 93 L 95 Oxygen Delivery Method Nasal Cannula Nasal Cannula Oxygen Flow Rate 2 2 FIO2% 01/24/23 02:00 01/23/23 20:44 01/23/23 20:44 Temperature Pulse Rate 83 90 Pulse Rate [Left Brachial] Respiratory Rate 18 Blood Pressure 131/59 Blood Pressure [Right Arm] O2 Sat by Pulse Oximetry 95 95 Oxygen Delivery Method Nasal Cannula Nasal Cannula Oxygen Flow Rate 2 2 FIO2% 28 01/24/23 03:00 01/24/23 04:00 01/24/23 05:00 Temperature 98.7 F Pulse Rate 80 80 82 Pulse Rate [Left Brachial] Respiratory Rate 18 15 21 Blood Pressure 120/57 124/58 123/58 Blood Pressure [Right Arm] O2 Sat by Pulse Oximetry 95 94 L 94 L Oxygen Delivery Method Nasal Cannula Nasal Cannula Nasal Cannula Oxygen Flow Rate 2 2 2 FIO2% 01/23/23 21:30 01/23/23 21:45 01/23/23 22:00 Temperature Pulse Rate 94 H 93 H 93 H Pulse Rate [Left Brachial] Respiratory Rate 32 H 22 22 Blood Pressure Blood Pressure [Right Arm] O2 Sat by Pulse Oximetry 96 96 94 L Oxygen Delivery Method Oxygen Flow Rate FIO2% 01/23/23 22:01 01/23/23 22:01 01/23/23 22:03 Temperature Pulse Rate 94 H Pulse Rate [Left Brachial] Respiratory Rate 24 Blood Pressure 190/84 186/87 Blood Pressure [Right Arm] O2 Sat by Pulse Oximetry 94 L Oxygen Delivery Method Oxygen Flow Rate FIO2% 01/23/23 22:03 01/23/23 22:11 01/23/23 22:11 Temperature Pulse Rate 94 H 92 H Pulse Rate [Left Brachial] Respiratory Rate 26 H 26 H Blood Pressure 181/80 Blood Pressure [Right Arm] O2 Sat by Pulse Oximetry 95 97 Oxygen Delivery Method Oxygen Flow Rate FIO2% 01/23/23 22:15 01/23/23 22:30 01/23/23 22:45 Temperature Pulse Rate 91 H 91 H 91 H Pulse Rate [Left Brachial] Respiratory Rate 37 H 23 22 Blood Pressure Blood Pressure [Right Arm] O2 Sat by Pulse Oximetry 96 96 96 Oxygen Delivery Method Oxygen Flow Rate FIO2% 01/23/23 23:00 01/23/23 23:00 01/23/23 23:15 Temperature Pulse Rate 91 H 93 H Pulse Rate [Left Brachial] Respiratory Rate 22 22 Blood Pressure 181/81 Blood Pressure [Right Arm] O2 Sat by Pulse Oximetry 95 96 Oxygen Delivery Method Oxygen Flow Rate FIO2% 01/23/23 23:27 01/23/23 23:27 01/23/23 23:30 Temperature Pulse Rate 94 H 92 H Pulse Rate [Left Brachial] Respiratory Rate 21 21 Blood Pressure 171/73 Blood Pressure [Right Arm] O2 Sat by Pulse Oximetry 94 L 95 Oxygen Delivery Method Oxygen Flow Rate FIO2% 01/23/23 23:45 01/24/23 00:00 01/24/23 00:00 Temperature Pulse Rate 95 H Pulse Rate [Left Brachial] Respiratory Rate 23 Blood Pressure 152/70 152/70 Blood Pressure [Right Arm] O2 Sat by Pulse Oximetry 95 Oxygen Delivery Method Oxygen Flow Rate FIO2% 01/24/23 00:00 01/24/23 00:15 01/24/23 00:30 Temperature Pulse Rate 88 86 84 Pulse Rate [Left Brachial] Respiratory Rate 23 29 H 22 Blood Pressure Blood Pressure [Right Arm] O2 Sat by Pulse Oximetry 93 L 96 96 Oxygen Delivery Method Oxygen Flow Rate FIO2% 01/24/23 00:45 01/24/23 01:00 01/24/23 01:00 Temperature Pulse Rate 84 84 Pulse Rate [Left Brachial] Respiratory Rate 20 19 Blood Pressure 159/72 Blood Pressure [Right Arm] O2 Sat by Pulse Oximetry 96 95 Oxygen Delivery Method Oxygen Flow Rate FIO2% 01/24/23 01:15 01/24/23 01:30 01/24/23 01:45 Temperature Pulse Rate 83 84 83 Pulse Rate [Left Brachial] Respiratory Rate 20 18 19 Blood Pressure Blood Pressure [Right Arm] O2 Sat by Pulse Oximetry 97 97 96 Oxygen Delivery Method Oxygen Flow Rate FIO2% 01/24/23 02:00 01/24/23 02:01 01/24/23 02:01 Temperature Pulse Rate 83 83 Pulse Rate [Left Brachial] Respiratory Rate 19 18 Blood Pressure 131/59 Blood Pressure [Right Arm] O2 Sat by Pulse Oximetry 95 95 Oxygen Delivery Method Oxygen Flow Rate FIO2% 01/24/23 02:15 01/24/23 02:30 01/24/23 02:45 Temperature Pulse Rate 82 80 80 Pulse Rate [Left Brachial] Respiratory Rate 18 17 16 Blood Pressure Blood Pressure [Right Arm] O2 Sat by Pulse Oximetry 96 95 95 Oxygen Delivery Method Oxygen Flow Rate FIO2% 01/24/23 03:00 01/24/23 03:00 01/24/23 03:15 Temperature Pulse Rate 80 80 Pulse Rate [Left Brachial] Respiratory Rate 18 24 Blood Pressure 120/57 Blood Pressure [Right Arm] O2 Sat by Pulse Oximetry 95 95 Oxygen Delivery Method Oxygen Flow Rate FIO2% 01/24/23 03:30 01/24/23 03:45 01/24/23 04:00 Temperature Pulse Rate 81 82 Pulse Rate [Left Brachial] Respiratory Rate 25 H 20 Blood Pressure 124/58 Blood Pressure [Right Arm] O2 Sat by Pulse Oximetry 95 94 L Oxygen Delivery Method Oxygen Flow Rate FIO2% 01/24/23 04:00 01/24/23 04:15 01/24/23 04:30 Temperature Pulse Rate 80 82 91 H Pulse Rate [Left Brachial] Respiratory Rate 15 15 22 Blood Pressure Blood Pressure [Right Arm] O2 Sat by Pulse Oximetry 94 L 96 95 Oxygen Delivery Method Oxygen Flow Rate FIO2% 01/24/23 04:45 01/24/23 05:00 01/24/23 05:00 Temperature Pulse Rate 82 82 Pulse Rate [Left Brachial] Respiratory Rate 22 31 H Blood Pressure 123/58 Blood Pressure [Right Arm] O2 Sat by Pulse Oximetry 95 93 L Oxygen Delivery Method Oxygen Flow Rate FIO2% 01/24/23 05:15 01/24/23 05:30 01/24/23 05:45 Temperature Pulse Rate 80 79 77 Pulse Rate [Left Brachial] Respiratory Rate 31 H 15 15 Blood Pressure Blood Pressure [Right Arm] O2 Sat by Pulse Oximetry 97 98 99 Oxygen Delivery Method Oxygen Flow Rate FIO2% 01/24/23 06:00 01/24/23 06:00 01/24/23 06:15 Temperature Pulse Rate 76 75 Pulse Rate [Left Brachial] Respiratory Rate 27 H 28 H Blood Pressure 138/63 Blood Pressure [Right Arm] O2 Sat by Pulse Oximetry 97 97 Oxygen Delivery Method Nasal Cannula Oxygen Flow Rate 2 FIO2% 01/24/23 06:30 01/24/23 06:45 01/24/23 07:00 Temperature Pulse Rate 79 78 Pulse Rate [Left Brachial] Respiratory Rate 33 H 34 H Blood Pressure 141/65 Blood Pressure [Right Arm] O2 Sat by Pulse Oximetry 96 96 Oxygen Delivery Method Oxygen Flow Rate FIO2% 01/24/23 07:00 01/24/23 07:15 01/24/23 07:30 Temperature Pulse Rate 77 78 80 Pulse Rate [Left Brachial] Respiratory Rate 27 H 32 H 32 H Blood Pressure Blood Pressure [Right Arm] O2 Sat by Pulse Oximetry 97 97 97 Oxygen Delivery Method Oxygen Flow Rate FIO2% 01/24/23 07:45 01/24/23 08:00 01/24/23 08:00 Temperature 97.8 F Pulse Rate 80 81 Pulse Rate [Left Brachial] Respiratory Rate 31 H 34 H Blood Pressure 140/71 Blood Pressure [Right Arm] O2 Sat by Pulse Oximetry 98 98 Oxygen Delivery Method Oxygen Flow Rate FIO2% 01/24/23 08:15 01/24/23 08:30 01/24/23 08:45 Temperature Pulse Rate 82 85 82 Pulse Rate [Left Brachial] Respiratory Rate 29 H 18 18 Blood Pressure Blood Pressure [Right Arm] O2 Sat by Pulse Oximetry 98 97 96 Oxygen Delivery Method Oxygen Flow Rate FIO2% 01/24/23 09:00 01/24/23 09:00 01/24/23 07:00 Temperature Pulse Rate 82 Pulse Rate [Left Brachial] Respiratory Rate 23 Blood Pressure 168/74 Blood Pressure [Right Arm] O2 Sat by Pulse Oximetry 95 Oxygen Delivery Method Nasal Cannula Oxygen Flow Rate 2 FIO2% 01/24/23 09:15 01/24/23 09:30 01/24/23 09:45 Temperature Pulse Rate 82 82 85 Pulse Rate [Left Brachial] Respiratory Rate 33 H 38 H 35 H Blood Pressure Blood Pressure [Right Arm] O2 Sat by Pulse Oximetry 100 100 100 Oxygen Delivery Method Oxygen Flow Rate FIO2% 01/24/23 10:00 01/24/23 10:00 01/24/23 09:13 Temperature Pulse Rate 87 Pulse Rate [Left Brachial] Respiratory Rate 30 H Blood Pressure 160/75 Blood Pressure [Right Arm] O2 Sat by Pulse Oximetry 95 Oxygen Delivery Method Nasal Cannula Oxygen Flow Rate 2 FIO2% 01/24/23 09:13 Temperature Pulse Rate 83 Pulse Rate [Left Brachial] Respiratory Rate Blood Pressure Blood Pressure [Right Arm] O2 Sat by Pulse Oximetry 96 Oxygen Delivery Method Oxygen Flow Rate FIO2% Labs: Laboratory Last Values WBC 5.6 X10^3/uL (3.6-10.0) 01/24/23 04:19 RBC 3.09 X10^6/uL (4.7-6.0) L 01/24/23 04:19 Hgb 9.0 g/dL (13.5-18.0) L 01/24/23 04:19 Hct 27.0 % (42.0-54.0) L 01/24/23 04:19 MCV 87.4 fL (80.0-100.0) 01/24/23 04:19 MCH 29.2 pg (27.0-34.0) 01/24/23 04:19 MCHC 33.4 g/dL (33.0-35.0) 01/24/23 04:19 RDW 14.6 % (11.6-16.5) 01/24/23 04:19 Plt Count 211 X10^3/uL (150.0-450.0) 01/24/23 04:19 MPV 7.4 fL (7.4-11.0) 01/24/23 04:19 Neut % (Auto) 76.4 % (42.0-75.0) H 01/24/23 04:19 Lymph % (Auto) 12.3 % (21.0-51.0) L 01/24/23 04:19 [place] % (Auto) 9.9 % (0.0-13.0) 01/24/23 04:19 Eos % (Auto) 1.2 % (0.9-2.9) 01/24/23 04:19 Baso % (Auto) 0.2 % (0.2-1.0) 01/24/23 04:19 Neut # (Auto) 4.3 x10^3/uL (2.2-4.8) 01/24/23 04:19 Lymph # (Auto) 0.7 X10^3/uL (1.3-2.9) L 01/24/23 04:19 [place] # (Auto) 0.6 x10^3/uL (0.3-0.8) 01/24/23 04:19 Eos # (Auto) 0.1 x10^3/uL (0.0-0.2) 01/24/23 04:19 Baso # (Auto) 0.0 X10^3/uL (0.0-0.1) 01/24/23 04:19 Absolute Nucleated RBC 0.1 /100WBC 01/24/23 04:19 Sodium 138 mmol/L (136-145) 01/24/23 04:19 Corrected Sodium TNP 01/24/23 04:19 Potassium 4.0 mmol/L (3.5-5.1) 01/24/23 04:19 Chloride 105 mmol/L (98-107) 01/24/23 04:19 Carbon Dioxide 30.9 mmol/L (21-32) 01/24/23 04:19 BUN 15 mg/dL (7-18) 01/24/23 04:19 Creatinine 0.83 mg/dL (0.70-1.30) 01/24/23 04:19 Est GFR (MDRD) Af Amer > 60 (>60) 01/24/23 04:19 Est GFR (MDRD) Non-Af > 60 (>60) 01/24/23 04:19 Glucose 100 mg/dL (65-99) H 01/24/23 04:19 Lactic Acid 0.9 mmol/L (0.4-2.0) 01/22/23 15:53 Calcium 8.2 mg/dL (8.5-10.1) L 01/24/23 04:19 Corrected Calcium 9.8 mg/dL (8.5-10.1) 01/24/23 04:19 Magnesium 1.7 mg/dL (2.0-2.9) L 01/24/23 04:19 Total Bilirubin 0.40 mg/dL (0.2-1.0) 01/24/23 04:19 AST 46 Units/L (15-37) H 01/24/23 04:19 ALT 42 Units/L (12-78) 01/24/23 04:19 Alkaline Phosphatase 60 Units/L (46-116) 01/24/23 04:19 Creatine Kinase 1582 Units/L (39-308) H 01/23/23 04:00 Troponin I High Sens 16.1 ng/L (4.0-60.0) 01/22/23 15:00 Total Protein 5.5 g/dL (6.4-8.2) L 01/24/23 04:19 Albumin 2.0 g/dL (3.4-5.0) L 01/24/23 04:19 Globulin 3.5 g/dL (2.5-4.5) 01/24/23 04:19 Albumin/Globulin Ratio 0.6 Ratio (1.1-2.1) L 01/24/23 04:19 Specimen Type Clean catch urine 01/22/23 14:40 Urine Color Yellow (YELLOW) 01/22/23 14:40 Urine Appearance Clear (CLEAR) 01/22/23 14:40 Urine pH 6.0 (5.0 - 8.0) 01/22/23 14:40 Ur Specific [place] 1.025 (1.000-1.030) 01/22/23 14:40 Urine Protein 2+ (NEGATIVE) 01/22/23 14:40 Urine Glucose (UA) Negative (NEGATIVE) 01/22/23 14:40 Urine Ketones Negative (NEGATIVE) 01/22/23 14:40 Urine Blood 1+ (NEGATIVE) 01/22/23 14:40 Urine Nitrite Negative (NEGATIVE) 01/22/23 14:40 Urine Bilirubin Negative (NEGATIVE) 01/22/23 14:40 Urine Urobilinogen Normal (NORMAL) 01/22/23 14:40 Ur Leukocyte Esterase Negative (NEGATIVE) 01/22/23 14:40 Urine RBC 0-2 /HPF (0-3) 01/22/23 14:40 Urine WBC 5-10 /HPF (0-5) A 01/22/23 14:40 Ur Squamous Epith Cells Rare /HPF (NEGATIVE) 01/22/23 14:40 Amorphous Sediment Trace /HPF (NEGATIVE) 01/22/23 14:40 Urine Bacteria Trace /HPF (NEGATIVE) 01/22/23 14:40 Hyaline Casts Few /LPF (NEGATIVE) 01/22/23 14:40 Urine Mucus Rare /HPF (NEGATIVE) 01/22/23 14:40 Ur Culture Indicated? No/not indicated 01/22/23 14:40 Urine Opiates Screen Positive (NEG=<300) 01/22/23 14:40 Urine Methadone Screen Negative (NEG=<300) 01/22/23 14:40 Ur Barbiturates Screen Negative (NEG=<200) 01/22/23 14:40 Ur Phencyclidine Scrn Negative (NEG=<25) 01/22/23 14:40 Ur Amphetamines Screen Negative (NEG=<1000) 01/22/23 14:40 U Benzodiazepines Scrn Positive (NEG=<200) 01/22/23 14:40 Urine Cocaine Screen Negative (NEG=<300) 01/22/23 14:40 U Marijuana (THC) Screen Negative (NEG=<50) 01/22/23 14:40 Reason For Visit: RHABODOMYOLYSIS, ACUTE RENAL FAILURE, Discharge Date Discharge Date: 01/24/23 Discharge Diagnosis All Active Problems (Updated 01/25/23 @ 13:42 by Danny Sandra) Altered mental status (Acute) Acute hypotension (Acute) Acute renal failure (Acute) Rhabdomyolysis (Acute) Lung mass (Chronic) COPD (chronic obstructive pulmonary disease) (Chronic) Fatty liver disease, nonalcoholic (Chronic) Chronic UTI (urinary tract infection) (Chronic) Chronic pain syndrome (Chronic) Hyperlipidemia (Chronic) Hypertension (Chronic) Plan of Treatment: Continue with present treatment and follow up plan. Pt is to keep follow up appointment as instructed and take medications as ordered. Discharge Medications Discharge Medications: No Known Drug Allergies Allergy (Unknown, Verified 04/08/22 00:21) CONTINUE taking the following medications alprazolam 1 mg tablet 1 mg PO TID PRN 01/22/23 [History] amlodipine 10 mg tablet 10 mg PO QDAY 01/22/23 [History] amoxicillin 875 mg-potassium clavulanate 125 mg tablet 1 tab PO BID 01/22/23 [History] budesonide-formoterol HFA 160 mcg-4.5 mcg/actuation aerosol inhaler (Symbicort) 1 inh inhalation BID 01/22/23 [History] ciprofloxacin HCl 500 mg tablet 500 mg PO BID 01/22/23 [History] clindamycin HCl 300 mg capsule 300 mg PO TID 01/22/23 [History] clonidine HCl 0.2 mg tablet 0.2 mg PO BID 01/22/23 [History] fenofibrate 160 mg tablet 160 mg PO QDAY 01/22/23 [History] fluoxetine 40 mg capsule 40 mg PO QDAY 01/22/23 [History] furosemide 20 mg tablet 20 mg PO QDAY 01/22/23 [History] furosemide 20 mg tablet 20 mg PO QDAY 01/22/23 [History] hydrochlorothiazide 25 mg tablet 25 mg PO QDAY 01/22/23 [History] hydrochlorothiazide 25 mg tablet 25 mg PO QDAY 01/22/23 [History] hydrocodone 7.5 mg-acetaminophen 325 mg tablet 1 tab PO Q6H PRN 01/22/23 [History] levothyroxine 100 mcg tablet 100 mcg PO QDAY 01/22/23 [History] losartan 100 mg tablet 100 mg PO QDAY 01/22/23 [History] montelukast 10 mg tablet 10 mg PO QDAY 01/22/23 [History] potassium chloride 20 mEq tablet,extended release(part/cryst) 20 meq PO BID 01/22/23 [History] quetiapine 400 mg tablet 400 mg PO QPM 01/22/23 [History] simvastatin 20 mg tablet 20 mg PO QPM 01/22/23 [History] terazosin 1 mg capsule 1 mg PO QDAY 01/22/23 [History] tizanidine 4 mg tablet 8 mg PO BID 01/22/23 [History] Discharge Plan Discharge Plan Hospital Course: Patient is a 62-year-old male with a past medical history of hypertension, hypothyroidism, COPD, osteoarthritis, anxiety disorder, admitted for accidental drug overdose, altered mental status, and rhabdomyolysis. Pt admitted to taking too much of his home medications of opioids and benzodiazepine. Patient was given IV fluid boluses and IV fluids normal saline at rate of 125 mL/h. He did have a OVIDIO drain on the right chest wall that general surgery was consulted and monitoring. It was placed at [facility] after he had a fall. Surgery will follow up outpatient on OVIDIO drain. Otherwise, pt responded well to treatments. Renal function significantly improved and CK trending down. Pt instructed to take his medication only as prescribed. Pt discharged in stable condition, instructed to follow up with pcp in 1 week. Patient Disposition: 01 HOME, SELF-CARE Condition: Stable Health Concerns: Post Hospitalization: new medications and changes needed to prevent readmission or further decline. Pt educated and given instructions on all concerns. Care Plan Goals: Problem: Fluid Volume Deficit Goal: Maintain/Improved Adequate hydration. Instructions: Follow provided instructions. Follow up with primary physician as directed. Contact primary care physician or report to the closest Emergency Room if condition worsens. Plan of Treatment: Continue with present treatment and follow up plan. Pt is to keep follow up appointment as instructed and take medications as ordered. Prescriptions: Continued fluoxetine 40 mg capsule 40 mg PO QDAY clindamycin HCl 300 mg capsule 300 mg PO TID Rx Instructions: x 10 days started on 01/20/23 alprazolam 1 mg tablet 1 mg PO TID PRN tizanidine 4 mg tablet 8 mg PO BID terazosin 1 mg capsule 1 mg PO QDAY ciprofloxacin HCl 500 mg tablet 500 mg PO BID Rx Instructions: x 10 days - started on 01/16/23 levothyroxine 100 mcg tablet 100 mcg PO QDAY clonidine HCl 0.2 mg tablet 0.2 mg PO BID potassium chloride 20 mEq tablet,ER particles/crystals 20 meq PO BID amlodipine 10 mg tablet 10 mg PO QDAY hydrocodone-acetaminophen 7.5-325 mg tablet 1 tab PO Q6H PRN simvastatin 20 mg tablet 20 mg PO QPM montelukast 10 mg tablet 10 mg PO QDAY hydrochlorothiazide 25 mg tablet 25 mg PO QDAY losartan 100 mg tablet 100 mg PO QDAY amoxicillin-pot clavulanate 875-125 mg tablet 1 tab PO BID Rx Instructions: x 7 days - started on 01/20/23 fenofibrate 160 mg tablet 160 mg PO QDAY quetiapine 400 mg tablet 400 mg PO QPM budesonide-formoterol [Symbicort] 160-4.5 mcg/actuation HFA aerosol inhaler 1 inh inhalation BID Follow ups/Referrals Follow ups/Referrals: ROSIE CHOW [STAFF PHYSICIAN] - 02/02/23 3:00 pm DONAVON CEJA [Primary Care Provider] - 01/31/23 9:30 am Instructions Instructions: Chronic Obstructive Pulmonary Disease Exacerbation, [id number], Steps to Quit Smoking, [id number], Acute Kidney Injury, Adult, Rhabdomyolysis, Prescription Drug Misuse Information, Hypotension, [id number], Substance Use Disorder Stand Alone Forms: Post Hospital Follow Up Care
== END 2023-01-24 11:35 | disposition home or self-care (01) | DRG 918 ==
LOC: ER 13:29 → ICU 19:44
PROVIDERS: ADMIT Internal Medicine; ATTEND Internal Medicine